=== PATIENT | male | born 1930 | race Caucasian/White ===

== ENCOUNTER → 2016-08-14 | Outpatient (CLI) | payer OTHER ==
[~2016-08-14] MED LIST: ACET-1311 PO; CALC0.2510 PO; CALC667C4 PO; CARV6.252 PO; CHOL1CAP95 PO; CHOL4POW3 PO; CLCC1250 PO; CMD3 PO; DIGO0.122 PO; DIGO30TA PO; EPGI40M SC; FURO40TA3 PO; LEVO1TAB34 PO; LEVO1TAB35 PO; LNX125 PO; LVQ500 PO; MESA1TAB4 PO; MOME100A INH; MRLP17 PO; NTRGSL/4 UT; NTRSLP4 SL; PHS667 PO; PRD/1 PO; PRED10TA PO; PXL20 PO; RCL25 PO; TCMD1 PO; TCMD2 PO; VITATAB22 PO; VTMD PO; VTMD1000 PO; WARF2TAB8 PO; XNX25 PO
[2016-08-14 18:00] LABS: BLOOD UREA NITROGEN 68 mg/dl (7-18); BUN/CREATININE RATIO 18.3 (10-20); CALCIUM 9.6 mg/dl (8.5-10.1); CARBON DIOXIDE 21 mmol/L (21-32); CHLORIDE 109 mmol/L (98-107); GLUCOSE 132 mg/dl (70-99); PHOSPHORUS 3.2 mg/dl (2.5-4.9); POTASSIUM 3.9 mmol/L (3.5-5.1); SODIUM 143 mmol/L (136-145)
== END | disposition home or self-care (01) ==
LOC: C.LAB1850 15:54
PROVIDERS: ATTEND Internal Medicine
DX: N18.9 Chronic kidney disease, unspecified (principal)

== ENCOUNTER → 2016-08-21 | Outpatient (CLI) | payer OTHER ==
[~2016-08-21] MED LIST changes: -MESA1TAB4 PO; +MESA800T6 PO
[2016-08-21 14:47] LABS: BLOOD UREA NITROGEN 58 mg/dl (7-18); BUN/CREATININE RATIO 16.2 (10-20); CALCIUM 9.9 mg/dl (8.5-10.1); CARBON DIOXIDE 21 mmol/L (21-32); CHLORIDE 108 mmol/L (98-107); GLUCOSE 117 mg/dl (70-99); POTASSIUM 3.8 mmol/L (3.5-5.1); SODIUM 141 mmol/L (136-145)
== END | disposition home or self-care (01) ==
LOC: C.LAB1850 12:49
PROVIDERS: ATTEND Internal Medicine
DX: N18.9 Chronic kidney disease, unspecified (principal); D64.9 Anemia, unspecified

== ENCOUNTER → 2016-08-31 | Outpatient (CLI) | payer OTHER ==
[~2016-08-31] MED LIST changes: -NTRGSL/4 UT
[2016-08-31 17:06] LABS: BLOOD UREA NITROGEN 64 mg/dl (7-18); BUN/CREATININE RATIO 18.9 (10-20); CALCIUM 9.8 mg/dl (8.5-10.1); CARBON DIOXIDE 19 mmol/L (21-32); CHLORIDE 110 mmol/L (98-107); GLUCOSE 162 mg/dl (70-99); POTASSIUM 3.8 mmol/L (3.5-5.1); SODIUM 140 mmol/L (136-145)
== END | disposition home or self-care (01) ==
LOC: C.LABBC 15:29
PROVIDERS: ATTEND Internal Medicine
DX: D64.9 Anemia, unspecified (principal); I48.91 Unspecified atrial fibrillation; I50.9 Heart failure, unspecified; N18.9 Chronic kidney disease, unspecified

== ENCOUNTER → 2016-09-13 | Outpatient (CLI) | payer OTHER ==
[2016-09-13 15:23] LABS: MANUAL MICROSCOPIC REQUIRED? YES; REVIEW REQ? NO; URINE APPEARANCE TURBID (CLEAR); URINE BILIRUBIN NEG (NEG); URINE COLOR DK YELLOW; URINE NITRITE NEG (NEG); URINE PH >= 9.0 (4.5-7.5); URINE SPECIFIC GRAVITY 1.016 (1.000-1.030); UROBILINOGEN NEG (NEG)
[2016-09-13 15:31] LABS: SULFASALICYLIC ACID POS (NEG)
[2016-09-13 15:48] LABS: URINE AMORPHOUS SEDIMENT PRESENT (NONE PRSENT)
[2016-09-13 15:49] LABS: URINE RBC 0-4 /hpf (0-4)
[2016-09-13 15:50] LABS: URINE BACTERIA 1+ (NEG)
== END | disposition home or self-care (01) ==
LOC: C.LAB1850 14:17
PROVIDERS: ATTEND Internal Medicine
DX: Z90.5 Acquired absence of kidney (principal)

== ENCOUNTER → 2016-11-26 | Outpatient (CLI) | payer OTHER ==
[~2016-11-26] MED LIST changes: +MESA1TAB4 PO; -MESA800T6 PO; +NTRGSL/4 UT; -PRED10TA PO
[2016-11-26 17:02] LABS: HEMATOCRIT 35.2 % (42-52)
[2016-11-26 17:09] LABS: BLOOD UREA NITROGEN 59 mg/dl (7-18); BUN/CREATININE RATIO 15.2 (10-20); CALCIUM 7.8 mg/dl (8.5-10.1); CARBON DIOXIDE 19 mmol/L (21-32); CHLORIDE 113 mmol/L (98-107); GLUCOSE 169 mg/dl (70-99); POTASSIUM 3.8 mmol/L (3.5-5.1); SODIUM 144 mmol/L (136-145)
[2016-11-26 17:10] LABS: PHOSPHORUS 3.4 mg/dl (2.5-4.9)
== END | disposition home or self-care (01) ==
LOC: C.LABBC 13:38
PROVIDERS: ATTEND Internal Medicine
DX: N18.9 Chronic kidney disease, unspecified (principal); D64.9 Anemia, unspecified

== ENCOUNTER → 2016-12-24 | Outpatient (CLI) | payer OTHER ==
[2016-12-24 17:07] LABS: INR 2.6 (0.9-1.1); PROTHROMBIN TIME (PATIENT) 28.6 SECONDS (9.0-12.0)
[2016-12-24 17:23] LABS: BLOOD UREA NITROGEN 68 mg/dl (7-18); BUN/CREATININE RATIO 17.8 (10-20); CALCIUM 11.1 mg/dl (8.5-10.1); CARBON DIOXIDE 21 mmol/L (21-32); CHLORIDE 113 mmol/L (98-107); GLUCOSE 150 mg/dl (70-99); PHOSPHORUS 3.4 mg/dl (2.5-4.9); POTASSIUM 4.1 mmol/L (3.5-5.1); SODIUM 143 mmol/L (136-145)
== END | disposition home or self-care (01) ==
LOC: C.LABBC 12:51
PROVIDERS: ATTEND Internal Medicine
DX: M35.3 Polymyalgia rheumatica (principal); M75.102 Unspecified rotator cuff tear or rupture of left shoulder, not specified as traumatic; H15.009 Unspecified scleritis, unspecified eye; I48.91 Unspecified atrial fibrillation; N18.9 Chronic kidney disease, unspecified; D64.9 Anemia, unspecified

== ENCOUNTER → 2017-01-21 | Outpatient (CLI) | payer OTHER ==
[2017-01-21 17:37] LABS: HEMATOCRIT 36.4 % (42-52)
[2017-01-21 17:45] LABS: INR 3.1 (0.9-1.1); PROTHROMBIN TIME (PATIENT) 34.8 SECONDS (9.0-12.0)
== END | disposition home or self-care (01) ==
LOC: C.LABBC 14:23
PROVIDERS: ATTEND Internal Medicine
DX: D64.9 Anemia, unspecified (principal); I48.91 Unspecified atrial fibrillation

== ENCOUNTER → 2017-03-11 | Outpatient (CLI) | payer OTHER ==
[~2017-03-11] MED LIST changes: -MESA1TAB4 PO; +MESA800T6 PO
[2017-03-11 17:19] LABS: PROTHROMBIN TIME (PATIENT) 58.4 SECONDS (9.0-12.0)
[2017-03-11 17:21] LABS: INR 5.1 (0.9-1.1)
== END | disposition home or self-care (01) ==
LOC: C.LABBC 12:20
PROVIDERS: ATTEND Internal Medicine Rheumatology
DX: I48.91 Unspecified atrial fibrillation (principal)

== ENCOUNTER 2017-03-31 03:21 | Inpatient (IN) | payer OTHER ==
[2017-03-31] VITALS (9 sets, daily range): BP systolic 108–117; BP diastolic 51–73; PULSE 68–98; TEMP 36.5–37; O2SAT 93–97; Ht 175.3 cm; Wt 71.0 kg
[~2017-03-31] VITALS: Ht 175.3 cm; Wt 71.0 kg
[~2017-03-31 03:21] MED LIST changes: -CALC0.2510 PO; -CALC667C4 PO; -CHOL1CAP95 PO; -CMD3 PO; -DIGO30TA PO; -LEVO1TAB34 PO; -LEVO1TAB35 PO; -NTRGSL/4 UT; -PRD/1 PO
[2017-03-31 03:56] LABS: HEMATOCRIT 41.4 % (42-52); MEAN CORPUSCULAR HEMOGLOBIN 27.8 pg (25-34); MEAN CORPUSCULAR HGB CONC 29.2 g/dl (32-36); MEAN PLATELET VOLUME 10.1 fL (7.4-10.4); PLATELET COUNT 127 K/uL (130-400); RED BLOOD COUNT 4.36 M/uL (4.7-6.1); WHITE BLOOD COUNT 13.92 K/uL (4.8-10.8)
[2017-03-31 04:03] LABS: ISTAT CREATININE 4.3 mg/dl (0.6-1.3); ISTAT HEMOGLOBIN 12.9 g/dl (14.0-18.0); ISTAT IONIZED CALCIUM 1.16 mmol/l (1.12-1.32)
--- NOTE | 2017-03-31 04:07 | EMERGENCY ROOM VISIT NOTE ---
History Report prepared by Ela: Nelli Barreto Under the Supervision of: Dr. Chela Morrow D.O. First contact with patient: 03:23 Stated Complaint: WEAKNESS, CONFUSION History of Present Illness The patient is an 86 year old male who presents to the Emergency Room with complaints of an episode of confusion starting this morning. The patient states that his is upset with him. He states that he half fell and had trouble getting back up. He complains of chills, abdominal pain, and not eating or drinking properly. He notes that the chills started within the past 24 hours and he can't get warm. The patient denies it being normal to fall. Per EMS, the patient is weak and confused. They note that he seems to go in and out of atrial fibrillation. They state he does not have a fever. Source of History: patient, EMS History Limited By: AMS Onset: this morning Position: other (global) Quality: other (global) Timing: other (episode) Associated Symptoms: + chills, + weakness, No fevers Note: The patient denies it being normal to fall. Review of Systems See HPI for pertinent positives & negatives. A total of 10 systems reviewed and were otherwise negative. Past Medical & Surgical Medical Problems: (1) Acute renal failure (2) Acute renal failure superimposed on stage 4 chronic kidney disease (3) Acute respiratory failure (4) Amputated right leg (5) Anemia (6) Aneurysm (7) Atrial fibrillation (8) Bladder cancer (9) Chronic kidney disease, stage IV (severe) (10) Diastolic CHF (11) DVT (deep venous thrombosis) (12) Hernia (13) History of chemotherapy (14) History of nephrectomy, unilateral (15) HTN (hypertension) (16) Hypertension (17) Kidney disease (18) PE (pulmonary embolism) (19) Phlebitis (20) Prostate cancer (21) Pulmonary embolus (22) Renal cancer (23) Right upper lobe pneumonia (24) Secondary hyperparathyroidism of renal origin Surgical Problems: (1) H/O total cystectomy (2) History of nephrectomy (3) History of prostate surgery (4) History of prostatectomy Family History Cancer Heart disease Hypertension Social History Smoking Status: Former Smoker Alcohol Use: occasionally Drug Use: none Marital Status: Housing Status: lives with significant other Occupation Status: retired Current/Historical Medications Scheduled Calcitriol (Calcitriol), 0.25 MCG PO QAM Calcitriol (Rocaltrol Cap), 0.25 MCG PO DAILY Calcium Acetate (Phoslo 667 Mg), 1,334 MG PO TIDM Calcium Acetate (Phoslo 667 Mg), 2 CAPSULES PO WM Calcium Carbonate (Oyster Shell Calcium), 1,250 MG PO BID Carvedilol (Coreg), 12.5 MG PO BID Cholecalciferol (Vitamin D3), 50,000 UNITS PO WK Cholestyramine (Cholestyramine), 4 GM PO BID Digoxin (Digoxin), 0.0625 MG PO DAILY@16 Digoxin (Lanoxin), 0.125 MG PO DAILY Digoxin (Digitek), 0.125 MG PO DAILY Furosemide (Lasix), 40 MG PO DAILY Mesalamine (Asacol Hd), 800 MG PO BID Mometasone Furoate-Formoterol (Dulera 100/5 Mcg), 2 PUFFS INH BID Paroxetine (Paroxetine HCl), 30 MG PO DAILY Polyethylene (Miralax), 17 GM PO BID Prednisone (Prednisone), 4 TAB PO DAILY Vitamins W/ Lipotropics (Balance B-50), 1 TAB PO BID Warfarin Sod (Jantoven), 2 MG PO DAILY Warfarin Sod (Coumadin), 1 MG PO QDB Warfarin Sod (Coumadin), 2 MG PO HS Warfarin Sod (Coumadin), 3 MG PO DAILY Scheduled PRN Acetaminophen (Tylenol), 650 MG PO Q4H PRN for Pain Alprazolam (Alprazolam), 0.125-0.25 TAB PO BID PRN for Anxiety Nitroglycerin (Nitrostat), 0.4 MG SL UD PRN for Chest Pain Miscellaneous Medications Epoetin Kip (Procrit), 40,000 UNIT SC Allergies Coded Allergies: Sulfa Antibiotics (Verified Allergy, Severe, RASH, COULDN'T BREATHE, ) Physical Exam Vital Signs Date Time Temp Pulse Resp B/P (MAP) Pulse Ox O2 Delivery O2 Flow Rate FiO2 03/31/17 05:26 85 92 03/31/17 05:11 101 28 90 03/31/17 04:56 99 95 03/31/17 04:41 88 90 03/31/17 04:26 89 30 93 03/31/17 04:11 114 31 86 03/31/17 04:10 95 Nasal Cannula 2.0 03/31/17 04:06 93 89 03/31/17 04:01 98 90 03/31/17 03:56 102 33 88 03/31/17 03:51 102 92 03/31/17 03:50 94 03/31/17 03:46 88 30 88 03/31/17 03:41 97 31 91 03/31/17 03:37 93 Room Air 03/31/17 03:36 105 34 98 Room Air 03/31/17 03:31 112/63 03/31/17 03:31 37.7 95 29 112/63 93 Room Air Physical Exam General: Seems slightly lethargic. Strong smell of urine. HEENT: Head - normocephalic and atraumatic Pupils are equal, round, and reactive to light. Extraocular eye muscles are intact, and sclera are anicteric. Nose - moist nasal mucosa without discharge. Mouth - extremely dry buccal mucosa. Oropharynx is nonerythematous and there is no tonsillar exudate or edema noted. Neck: Supple; no JVD, or cervical lymphadenopathy Heart: Tachycardic rate and irregularly irregular rhythm. There is a normal S1 and S2 with no murmurs, clicks, or gallops appreciated. Lungs: Clear to auscultation bilaterally with no wheezes, rales, or rhonchi. Abdomen: Soft, completely nontender, nondistended, with good bowel sounds. There are no palpable pulsatile masses or hepatosplenomegaly. There is no guarding, rigidity, or rebound noted. Extremities: No evidence of cyanosis, clubbing, or edema. There are easily palpable peripheral pulses. Skin: hot and dry with good turgor and no rashes. Medical Decision & Procedures ER Provider Diagnostic Interpretation: CHEST X-RAY: Findings: The results were interpreted by me. Moderate motion artifact. Significant cardiomegaly and pulmonary vascular congestion. Laboratory Results 03/31/17 03:04 Red Blood Count 4.36, Mean Corpuscular Volume 95.0, Mean Corpuscular Hemoglobin 27.8, Mean Corpuscular Hemoglobin Concent 29.2, Mean Platelet Volume 10.1, Neutrophils (%) (Auto) 86.9, Lymphocytes (%) (Auto) 5.6, Monocytes (%) (Auto) 6.0, Eosinophils (%) (Auto) 0.3, Basophils (%) (Auto) 0.1, Neutrophils # (Auto) 12.09, Lymphocytes # (Auto) 0.78, Monocytes # (Auto) 0.84, Eosinophils # (Auto) 0.04, Basophils # (Auto) 0.01 03/31/17 03:04 Test 03/31/17 03:04 03/31/17 03:45 03/31/17 03:50 03/31/17 04:16 White Blood Count 13.92 K/uL (4.8-10.8) Red Blood Count 4.36 M/uL (4.7-6.1) Hemoglobin 12.1 g/dL (14.0-18.0) Hematocrit 41.4 % (42-52) Mean Corpuscular Volume 95.0 fL (80-100) Mean Corpuscular Hemoglobin 27.8 pg (25-34) Mean Corpuscular Hemoglobin Concent 29.2 g/dl (32-36) Platelet Count 127 K/uL (130-400) Mean Platelet Volume 10.1 fL (7.4-10.4) Neutrophils (%) (Auto) 86.9 % Lymphocytes (%) (Auto) 5.6 % Monocytes (%) (Auto) 6.0 % Eosinophils (%) (Auto) 0.3 % Basophils (%) (Auto) 0.1 % Neutrophils # (Auto) 12.09 K/uL (1.4-6.5) Lymphocytes # (Auto) 0.78 K/uL (1.2-3.4) Monocytes # (Auto) 0.84 K/uL (0.11-0.59) Eosinophils # (Auto) 0.04 K/uL (0-0.5) Basophils # (Auto) 0.01 K/uL (0-0.2) RDW Standard Deviation 63.9 fL (36.4-46.3) RDW Coefficient of Variation 18.4 % (11.5-14.5) Immature Granulocyte % (Auto) 1.1 % Immature Granulocyte # (Auto) 0.16 K/uL (0.00-0.02) Tear Drop Cells 1+ Ovalocytes 1+ Echinocytes 1+ Prothrombin Time 57.5 SECONDS (9.0-12.0) Prothromb Time International Ratio 5.0 (0.9-1.1) Activated Partial Thromboplast Time 46.0 SECONDS (21.0-31.0) Partial Thromboplastin Ratio 1.8 Est Creatinine Clear Calc Drug Dose 12.4 ml/min Estimated GFR () 13.8 Estimated GFR (Non- 11.9 BUN/Creatinine Ratio 18.8 (10-20) Calcium Level 8.0 mg/dl (8.5-10.1) Total Bilirubin 0.6 mg/dl (0.2-1) Aspartate Amino Transf (AST/SGOT) 10 U/L (15-37) Alanine Aminotransferase (ALT/SGPT) 17 U/L (12-78) Alkaline Phosphatase 55 U/L (45-117) Total Creatine Kinase 59 U/L (39-308) Creatine Kinase MB 2.5 ng/ml (0.5-3.6) Troponin I 0.039 ng/ml (0-0.045) Pro-B-Type Natriuretic Peptide 9756 pg/ml (0-1800) Total Protein 7.3 gm/dl (6.4-8.2) Albumin 3.2 gm/dl (3.4-5.0) Globulin 4.1 gm/dl (2.5-4.0) Albumin/Globulin Ratio 0.8 (0.9-2) Bedside Hemoglobin 12.9 g/dl (14.0-18.0) Bedside Hematocrit 38 % (42-52) Bedside Sodium 139 mEq/L (135-144) Bedside Potassium 4.4 mEq/L (3.3-5.0) Bedside Chloride 113 mEq/L (101-112) Bedside Total CO2 16 mEq/l (24-31) Anion Gap 16.0 mmol/L (16-25) Bedside Blood Urea Nitrogen 83 mg/dl (7-18) Bedside Creatinine 4.3 mg/dl (0.6-1.3) Bedside Glucose (other) 122 mg/dl (70-99) Bedside Ionized Calcium (Donna) 1.16 mmol/l (1.12-1.32) Bedside Lactic Acid Venous 1.09 mmol/L (0.90-1.70) Creatine Kinase MB Ratio (0-3.0) Test 03/31/17 04:20 Urine Color DK YELLOW Urine Appearance CLOUDY (CLEAR) Urine pH >= 9.0 (4.5-7.5) Urine Specific [place] 1.014 (1.000-1.030) Urine Protein 1+ (NEG) Urine Glucose (UA) NEG (NEG) Urine Ketones NEG (NEG) Urine Occult Blood 1+ (NEG) Urine Nitrite NEG (NEG) Urine Bilirubin NEG (NEG) Urine Urobilinogen NEG (NEG) Urine Leukocyte Esterase MODERATE (NEG) Urine WBC (Auto) 10-30 /hpf (0-5) Urine RBC (Auto) 0-4 /hpf (0-4) Urine Hyaline Casts (Auto) 1-5 /lpf (0-5) Urine Epithelial Cells (Auto) 5-10 /lpf (0-5) Urine Bacteria (Auto) 4+ (NEG) Urine Crystals TRIPLE PHOSPHATE Urine Yeast (Auto) (NONE PRSENT) Laboratory results per my review. Medications Administered Medications (Trade) Dose Ordered Sig/Olya Route Start Time Stop Time Status Last Admin Dose Admin Sodium Chloride 500 ml @ 999 mls/hr Q31M STAT IV 03/31/17 04:13 03/31/17 04:43 DC 03/31/17 04:34 999 MLS/HR Sodium Chloride 1,000 ml @ 250 mls/hr Q4H STAT IV 03/31/17 04:13 03/31/17 06:30 DC 03/31/17 04:34 250 MLS/HR Daptomycin 500 mg/ Sodium Chloride 60 ml @ 100 mls/hr NOW STAT IV 03/31/17 05:03 03/31/17 05:38 DC 03/31/17 05:29 100 MLS/HR Piperacillin Sod/ Tazobactam Sod (Zosyn Iv) 4.5 gm NOW STAT IV 03/31/17 05:03 03/31/17 05:05 DC 03/31/17 05:20 4.5 GM Procedure 0413: Ordered NSS 1000 ml @ 250 mls/hr IV, NSS 500 ml @ 999 mls/hr IV. 0503: Ordered Zosyn Iv 4.5 gm IV, Daptomycin 500 mg/ Sodium Chloride 60 ml @ 100 mls/hr IV. ECG Indication: weakness Rate (beats per minute): 103 Rhythm: atrial fibrillation Findings: RBBB, other (RVR) Comparison ECG Date: 04/02/2016 Change: no significant change ED Course 0327: Past medical records reviewed. The patient was evaluated in room A11B. A complete history and physical exam was performed. A septic protocol was performed. A twelve-lead EKG was obtained. A chest x-ray was performed. A urine specimen was obtained from his catheter. 0413: Ordered NSS 1000 ml @ 250 mls/hr IV, NSS 500 ml @ 999 mls/hr IV. 0503: Ordered Zosyn Iv 4.5 gm IV, Daptomycin 500 mg/ Sodium Chloride 60 ml @ 100 mls/hr IV. 0505: I reevaluated the patient and he was resting comfortably. I discussed the results with him and his . 0532: Discussed the patient's case with Dr. Bhat. The patient will be evaluated for further management. Medical Decision The patient is an 86 year old male who presents to the Emergency Room with complaints of an episode of confusion and chills starting this morning. Differential diagnoses include sepsis, UTI, hypoglycemia, hyponatremia. LABS: Lactate 1.09 Creatine 4.3 BUN 83 Glucose 122 Hemiglobin 12.9 White blood cell count 13.9 INR 5.0 Platelet Count 127 LFTs normal Urine dark yellow and cloudy 1+ blood, moderate leukocyte esterase 10-30 white blood cells 4+ bacteria Lactic acid-1.09 the patient presents to the emergency department with increasing confusion and chills. There was concern for sepsis as the patient was tachycardic, tachypneic, febrile , and has an elevated white blood cell count. The patient's BUN/creatinine has increased. In reviewing previous urine cultures, the patient has had enterococcus faecalis which has been susceptible to daptomycin. The patient was started on both daptomycin and Zosyn. He remained hemodynamic stable. I discussed the case with the [facility] Hospitalist and they will evaluate for further management. The patient did have an episode of hypoxia while here in the emergency department. He is placed on supplemental O2. There was evidence of pulmonary vascular congestion on chest x-ray. Medication Reconcilliation Current Medication List: was personally reviewed by mo Blood Pressure Screening Patient's blood pressure: Normal blood pressure Blood pressure disposition: Did not require urgent referral Consults Time Called: 0504 Consulting Physician: Dr. Bhat Returned Call: 0532 Discussed the patient's case with Dr. Bhat. The patient will be evaluated for further management. Impression Primary Impression: Sepsis Additional Impressions: UTI (urinary tract infection) Supratherapeutic INR Hypoxia Critical Care I have personally spent greater than 30 minutes of critical care time in the direct management of this patient. This includes bedside care, interpretation of diagnostic studies, and testing, discussion with consultants, patient, and family members, and other required patient management activities. This 30 minutes is in excess of all separately billable procedures. Scribe Attestation The scribe's documentation has been prepared under my direction and personally reviewed by me in its entirety. I confirm that the note above accurately reflects all work, treatment, procedures, and medical decision making performed by me. Departure Information Dispostion Being Evaluated By Hospitalist Nickolas Chapin M.D. (PCP) Problem Qualifiers Primary Impression: Sepsis Sepsis type: sepsis due to unspecified organism Qualified Codes: A41.9 - Sepsis, unspecified organism Additional Impressions: UTI (urinary tract infection) Urinary tract infection type: catheter-associated UTI Indwelling urinary catheter type: nephrostomy catheter Encounter type: initial encounter Qualified Codes: T83.512A - Infection and inflammatory reaction due to nephrostomy catheter, initial encounter; N39.0 - Urinary tract infection, site not specified
[2017-03-31 04:12] LABS: PARTIAL THROMBOPLASTIN RATIO 1.8; PROTHROMBIN TIME (PATIENT) 57.5 SECONDS (9.0-12.0)
[2017-03-31] MEDS ORDERED: SODIUM CHLORIDE 0.9% 1000ML 1,000 ML IV STA (04:13)
[2017-03-31] MEDS ORDERED: SODIUM CHLORIDE 0.9% 500ML 500 ML IV STA (04:13)
[2017-03-31 04:15] LABS: BUN/CREATININE RATIO 18.8 (10-20); CREATININE 4.2 mg/dl (0.60-1.40); POTASSIUM 4.5 mmol/L (3.5-5.1)
[2017-03-31 04:17] LABS: ALB/GLOB RATIO 0.8 (0.9-2)
[2017-03-31 04:18] LABS: BASO % 0.1 %; BASO ABS # 0.01 K/uL (0-0.2); COMPLETE YES; ECHINOCYTES 1+; EOS % 0.3 %; IG% 1.1 %; LYMPH % 5.6 %; LYMPH ABS # 0.78 K/uL (1.2-3.4); NEUT % 86.9 %; OVALOCYTES 1+; TEAR DROP CELLS 1+
[2017-03-31 04:42] LABS: URINE APPEARANCE CLOUDY (CLEAR); URINE BILIRUBIN NEG (NEG); URINE COLOR DK YELLOW; URINE NITRITE NEG (NEG); URINE PH >= 9.0 (4.5-7.5); URINE SPECIFIC GRAVITY 1.014 (1.000-1.030); UROBILINOGEN NEG (NEG); ZZURINE CULT IF INDIC CATH YES
[2017-03-31 05:00] LABS: MANUAL MICROSCOPIC REQUIRED? NO; REVIEW REQ? YES; SULFASALICYLIC ACID POS (NEG)
[2017-03-31] MEDS ORDERED: PIPERACILLIN/TAZOBACTAM 4.5 GM/100ML D5W IV STA (05:03)
[2017-03-31] MEDS ORDERED: DAPTOmycin IV 500 MG in SODIUM CHLORIDE 0.9% 50ML 50 ML IV STA (05:03)
[2017-03-31] MEDS ORDERED: CMD3 PO (05:28)
[2017-03-31] MEDS ORDERED: DIGO30TA PO (05:29)
[2017-03-31] MEDS ORDERED: ALUMINUM/MAGNESIUM/SIMETH (MAALOX MAX) 30 ML UDC PO PRN (05:30)
[2017-03-31] MEDS ORDERED: MAGNESIUM HYDROXIDE SUSP 30 ML UDC PO PRN (05:30)
[2017-03-31] MEDS ORDERED: NITROGLYCERIN 0.4 MG SL PER TAB CHARGE SL PRN (05:30)
[2017-03-31] MEDS ORDERED: ACETAMINOPHEN 325 MG TAB PO PRN (05:30)
[2017-03-31] MEDS ORDERED: ALPRAZOLAM 0.5 MG TAB PO PRN (05:30)
[2017-03-31] MEDS ORDERED: MoRPHine SULFATE 2 MG/ML CARP IV PRN (05:30)
[2017-03-31] MEDS ORDERED: ONDANSETRON INJ 2 MG/ML 2 ML VIAL IV PRN (05:30)
[2017-03-31] MEDS ORDERED: CHOL1CAP95 PO (05:31)
[2017-03-31] MEDS ORDERED: CALC0.2510 PO (05:33)
[2017-03-31] MEDS ORDERED: CALC667C4 PO (05:35)
[2017-03-31] MEDS ORDERED: PRD/1 PO (05:40)
[2017-03-31 05:51] LABS: CKMB/CK RATIO 4.2 (0-3.0)
--- NOTE | 2017-03-31 06:23 | History and Physical ---
History & Physical Date & Time of Service: Mar 31, 2017 at 05:53 Chief Complaint: Weakness, Confusion Primary Care Physician: Nickolas Garza M.D. History of Present Illness Source: patient, hospital records 86 y/o M with a complex medical history including CKD IV, CHF, AF, bladder CA post cystectomy - urostomy and recurrent UTIs. Presents with progressive weakness, fevers and intermittent confusion. He has a chronic cough, denies CP , N/V/D or MEIER. On arrival to the ER a fever was confirmed. His UA is + and his urine appears grossly purulent. Initial labs are notable for leukocytosis. 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 Faecium UTI Surgical Problems: (1) H/O total cystectomy Status: Chronic (2) History of nephrectomy Status: Chronic (3) History of prostate surgery Status: Resolved (4) History of prostatectomy Status: Chronic Family History Cancer Heart disease Hypertension Social History Retired school district superintendant Smoking Status: Former Smoker Drug Use: none Marital Status: Housing status: lives with family Occupational Status: retired Immunizations History of Tetanus Vaccine?: PT UNABLE TO REMEMBER History of Pneumococcal: PT UNAWARE. History of Hepatitis B Vaccine: No Multi-Drug Resistant Organisms History of MDRO: No Allergies Coded Allergies: Sulfa Antibiotics (Verified Allergy, Severe, RASH, COULDN'T BREATHE, ) Home Medications Scheduled Calcitriol (Calcitriol), 0.25 MCG PO QAM Calcitriol (Rocaltrol Cap), 0.25 MCG PO DAILY Calcium Acetate (Phoslo 667 Mg), 1,334 MG PO TIDM Calcium Acetate (Phoslo 667 Mg), 2 CAPSULES PO WM Calcium Carbonate (Oyster Shell Calcium), 1,250 MG PO BID Carvedilol (Coreg), 12.5 MG PO BID Cholecalciferol (Vitamin D3), 50,000 UNITS PO WK Cholestyramine (Cholestyramine), 4 GM PO BID Digoxin (Digoxin), 0.0625 MG PO DAILY@16 Digoxin (Lanoxin), 0.125 MG PO DAILY Digoxin (Digitek), 0.125 MG PO DAILY Furosemide (Lasix), 40 MG PO DAILY Mesalamine (Asacol Hd), 800 MG PO BID Mometasone Furoate-Formoterol (Dulera 100/5 Mcg), 2 PUFFS INH BID Paroxetine (Paroxetine HCl), 30 MG PO DAILY Polyethylene (Miralax), 17 GM PO BID Prednisone (Prednisone), 4 TAB PO DAILY Vitamins W/ Lipotropics (Balance B-50), 1 TAB PO BID Warfarin Sod (Jantoven), 2 MG PO DAILY Warfarin Sod (Coumadin), 1 MG PO QDB Warfarin Sod (Coumadin), 2 MG PO HS Warfarin Sod (Coumadin), 3 MG PO DAILY Scheduled PRN Acetaminophen (Tylenol), 650 MG PO Q4H PRN for Pain Alprazolam (Alprazolam), 0.125-0.25 TAB PO BID PRN for Anxiety Nitroglycerin (Nitrostat), 0.4 MG SL UD PRN for Chest Pain Miscellaneous Medications Epoetin Kip (Procrit), 40,000 UNIT SC Review of Systems Constitutional: + fever, + weakness, + fatigue, + problem reported (Confusion) , No chills, No sweats Eyes: + eye pain (Has had b/l euye pain and redness for a few weeks - follows with ophtho ), No worsening of vision ENT: No hearing loss, No unusual epistaxis, No nasal symptoms Respiratory: + cough (Chronic productive cough), + sputum, No wheezing Cardiovascular: No chest pain, No orthopnea, No PND Abdomen: No pain, No nausea, No vomiting Musculoskeletal: No joint pain Genitourinary - Male: + problem reported (Purulent urine), No hematuria Neurologic: + problem reported (Mild confusion), No memory loss, No paralysis Psychiatric: No depression symptoms Endocrine: + fatigue Hematologic / Lymphatic: No abnormal bleeding/bruising Integumentary: No rash Allergic / Immunologic: No environmental allergies Physical Exam Vital Signs Date Time Temp Pulse Resp B/P (MAP) Pulse Ox O2 Delivery O2 Flow Rate FiO2 03/31/17 04:10 95 Nasal Cannula 2.0 03/31/17 04:06 93 89 03/31/17 04:01 98 90 03/31/17 03:56 102 33 88 03/31/17 03:51 102 92 03/31/17 03:50 94 03/31/17 03:46 88 30 88 03/31/17 03:41 97 31 91 03/31/17 03:37 93 Room Air 03/31/17 03:36 105 34 98 Room Air 03/31/17 03:31 112/63 03/31/17 03:31 37.7 95 29 112/63 93 Room Air General Appearance: + pertinent finding (Takative elderly male - appears lethargic and fatigued without overt distress.) Head: normocephalic, atraumatic Eyes: normal inspection ENT: normal ENT inspection, pharynx normal Neck: supple, no JVD Respiratory/Chest: chest non-tender, + decreased breath sounds, + pertinent finding (Poor effort - poor air movement) Cardiovascular: + systolic murmur, + irregularly irregular Abdomen/GI: normal bowel sounds, soft, + pertinent finding (Urostomy present - no surrounding inflamation noted ) Back: normal inspection, no CVA tenderness Extremities/Musculoskelatal: + pertinent finding (R AKA - trace edema on L) Neurologic/Psych: db2 dba II-XII nml as tested, no motor/sensory deficits, alert, + pertinent finding (Shows occasional mild confusion, however, mentation is largely intact) Skin: normal color, warm/dry Diagnostics Laboratory Results Results Past 24 Hours Test 03/31/17 03:04 03/31/17 03:45 03/31/17 03:50 03/31/17 04:16 Range/Units White Blood Count 13.92 4.8-10.8 K/uL Red Blood Count 4.36 4.7-6.1 M/uL Hemoglobin 12.1 14.0-18.0 g/dL Hematocrit 41.4 42-52 % Mean Corpuscular Volume 95.0 80-100 fL Mean Corpuscular Hemoglobin 27.8 25-34 pg Mean Corpuscular Hemoglobin Concent 29.2 32-36 g/dl Platelet Count 127 130-400 K/uL Mean Platelet Volume 10.1 7.4-10.4 fL Neutrophils (%) (Auto) 86.9 % Lymphocytes (%) (Auto) 5.6 % Monocytes (%) (Auto) 6.0 % Eosinophils (%) (Auto) 0.3 % Basophils (%) (Auto) 0.1 % Neutrophils # (Auto) 12.09 1.4-6.5 K/uL Lymphocytes # (Auto) 0.78 1.2-3.4 K/uL Monocytes # (Auto) 0.84 0.11-0.59 K/uL Eosinophils # (Auto) 0.04 0-0.5 K/uL Basophils # (Auto) 0.01 0-0.2 K/uL RDW Standard Deviation 63.9 36.4-46.3 fL RDW Coefficient of Variation 18.4 11.5-14.5 % Immature Granulocyte % (Auto) 1.1 % Immature Granulocyte # (Auto) 0.16 0.00-0.02 K/uL Tear Drop Cells 1+ Ovalocytes 1+ Echinocytes 1+ Prothrombin Time 57.5 9.0-12.0 SECONDS Prothromb Time International Ratio 5.0 0.9-1.1 Activated Partial Thromboplast Time 46.0 21.0-31.0 SECONDS Partial Thromboplastin Ratio 1.8 Sodium Level 139 136-145 mmol/L Potassium Level 4.5 3.5-5.1 mmol/L Chloride Level 114 98-107 mmol/L Carbon Dioxide Level 16 21-32 mmol/L Anion Gap 9.0 16.0 16-25 mmol/L Blood Urea Nitrogen 79 7-18 mg/dl Creatinine 4.20 0.60-1.40 mg/dl Est Creatinine Clear Calc Drug Dose 12.4 ml/min Estimated GFR () 13.8 Estimated GFR (Non- 11.9 BUN/Creatinine Ratio 18.8 10-20 Random Glucose 116 70-99 mg/dl Calcium Level 8.0 8.5-10.1 mg/dl Total Bilirubin 0.6 0.2-1 mg/dl Aspartate Amino Transf (AST/SGOT) 10 15-37 U/L Alanine Aminotransferase (ALT/SGPT) 17 12-78 U/L Alkaline Phosphatase 55 45-117 U/L Total Creatine Kinase 59 39-308 U/L Creatine Kinase MB 2.5 0.5-3.6 ng/ml Creatine Kinase MB Ratio 4.2 0-3.0 Troponin I 0.039 0-0.045 ng/ml Pro-B-Type Natriuretic Peptide 9756 0-1800 pg/ml Total Protein 7.3 6.4-8.2 gm/dl Albumin 3.2 3.4-5.0 gm/dl Globulin 4.1 2.5-4.0 gm/dl Albumin/Globulin Ratio 0.8 0.9-2 Bedside Hemoglobin 12.9 14.0-18.0 g/dl Bedside Hematocrit 38 42-52 % Bedside Sodium 139 135-144 mEq/L Bedside Potassium 4.4 3.3-5.0 mEq/L Bedside Chloride 113 101-112 mEq/L Bedside Total CO2 16 24-31 mEq/l Bedside Blood Urea Nitrogen 83 7-18 mg/dl Bedside Creatinine 4.3 0.6-1.3 mg/dl Bedside Glucose (other) 122 70-99 mg/dl Bedside Ionized Calcium (Donna) 1.16 1.12-1.32 mmol/l Bedside Lactic Acid Venous 1.09 0.90-1.70 mmol/L Test 03/31/17 04:20 Range/Units Urine Color DK YELLOW Urine Appearance CLOUDY CLEAR Urine pH >= 9.0 4.5-7.5 Urine Specific [place] 1.014 1.000-1.030 Urine Protein 1+ NEG Urine Glucose (UA) NEG NEG Urine Ketones NEG NEG Urine Occult Blood 1+ NEG Urine Nitrite NEG NEG Urine Bilirubin NEG NEG Urine Urobilinogen NEG NEG Urine Leukocyte Esterase MODERATE NEG Urine WBC (Auto) 10-30 0-5 /hpf Urine RBC (Auto) 0-4 0-4 /hpf Urine Hyaline Casts (Auto) 1-5 0-5 /lpf Urine Epithelial Cells (Auto) 5-10 0-5 /lpf Urine Bacteria (Auto) 4+ NEG Urine Crystals TRIPLE PHOSPHATE NONE PRSENT Urine Yeast (Auto) NONE PRSENT Microbiology Results 03/31/17 Blood Culture, Received Pending 03/31/17 Blood Culture, Received Pending 03/31/17 Urine Culture, Received Pending Diagnostic Radiology CXR: Vascular congestion - no clear infiltrates EKG AF - RBBB - 100BPM - no significant change Impression Assessment and Plan 86 y/o M with a complex medical history including CKD IV, CHF, AF, bladder CA post cystectomy - urostomy and recurrent UTIs. Presents with progressive weakness, fevers and intermittent confusion. He has a chronic cough, denies CP , N/V/D or MEIER. On arrival to the ER a fever was confirmed. His UA is + and his urine appears grossly purulent. Initial labs are notable for leukocytosis. 1) Sepsis - UTI - based on previous microbiology, pt placed on Dapto - Zosyn added due to sepsis pending culture results. He has not exhibited hypotension, however, his volume status and pressure will bear monitoring due to underlying CHF. He has been assigned to telemetry. 2) CHF - Clinically he is mildly fluid overloaded - due to infection and potential for hypotension - no additional diuretics provided - will cont scheduled Lasix dose, Bblocker. 3) CKD - creatinine appears stable based on available labs - trend BMP daily 4) AF - rate is slightly high which may be due to infection and fever - monitor on telemetry - cont Coreg and Dig - INR is supratherapeutic so that Coumadin can be held for 1-2 days Full code - Coumadin prophylaxis Total time for this admit including review of labs, meds, imaging, EKG, records - discussion with pt and ER attending - 45 min Level of Care Telemetry Resuscitation Status FULL RESUSCITATION VTE Prophylaxis VTE Risk Assessment Done? Y/N: Yes Risk Level: Moderate Given or contraindicated: Warfarin (Coumadin)
[2017-03-31] MEDS ORDERED: PIPERACILL/TAZOBAC CONSULT ACTIVE PRN (06:30)
[2017-03-31] MEDS ORDERED: DAPTOMYCIN CONSULT ACTIVE PRN ×2 (06:30)
[2017-03-31] MEDS: CALCITRIOL 0.25 MCG CAP PO SCH (07:56)
[2017-03-31] MEDS: PAROXETINE 30 MG TAB PO SCH (07:56)
[2017-03-31] MEDS: CALCIUM ACETATE 667MG GELCAP PO SCH ×3 (07:57→17:09)
[2017-03-31] MEDS: FUROSEMIDE 40 MG TAB PO SCH ×2 (07:57→17:09)
[2017-03-31] MEDS: POLYETHYLENE (MIRALAX) 17 GM PACK PO SCH ×2 (08:01→20:53)
--- NOTE | 2017-03-31 08:09 | DIAGNOSTIC IMAGING REPORT ---
SINGLE VIEW CHEST CLINICAL HISTORY: Sepsis. FINDINGS: An AP, portable, upright chest radiograph is compared to study dated 04/18/2016 and correlated with chest CT dated 12/11/2015. The examination is severely degraded by portable technique, motion artifact, and patient rotation. The heart is enlarged and there is atherosclerotic calcification of the thoracic aorta. There is no clear evidence of pulmonary basilar congestion. Advanced emphysema and changes of chronic interstitial lung disease are similar to previous. There is diffuse interstitial thickening and subpleural reticulation. Airspace opacities are suggested at the left lung base. No large pleural effusion or pneumothorax is seen. The skeletal structures are osteopenic. The bony thorax is grossly intact. IMPRESSION: 1. Cardiomegaly without clear radiographic evidence of congestive failure. 2. Changes of emphysema and chronic interstitial lung disease are similar to previous. 3. Suspect more focal airspace consolidation at the left lung base which was not seen on 04/18/2016. Correlated clinically for evidence of superimposed pneumonia/aspiration pneumonitis. Radiographic follow-up to resolution is recommended. Electronically signed by: Jason Reina M.D. 03/31/2017 8:08 AM Dictated Date/Time: 03/31/2017 8:06 AM
[2017-03-31] MEDS ORDERED: DIGOXIN 0.125 MG TAB PO SCH (09:00)
[2017-03-31] MEDS ORDERED: CARVEDILOL 12.5 MG TAB PO SCH (09:00)
[2017-03-31] MEDS: CHOLESTYRAMINE LIGHT 4 GM PKT PO SCH ×2 (10:00→20:53)
[2017-03-31] MEDS ORDERED: NURSING VERBAL MED ORDER ONE (11:30)
[2017-03-31] MEDS: PIPERACILL/TAZOBAC IV 3.375 GM in DEXTROSE 5% 100ML 100 ML IV SCH (13:56)
[2017-03-31] MEDS: DIGOXIN 0.125 MG TAB PO SCH (17:10)
[2017-04-01] VITALS (9 sets, daily range): BP systolic 113–129; BP diastolic 58–80; PULSE 62–83; TEMP 36.1–37; O2SAT 93–97
[2017-04-01] MEDS: PIPERACILL/TAZOBAC IV 3.375 GM in DEXTROSE 5% 100ML 100 ML IV SCH ×2 (01:55→14:19)
[2017-04-01 05:51] LABS: HEMATOCRIT 35.2 % (42-52); MEAN CELL VOLUME 94.4 fL (80-100); MEAN CORPUSCULAR HEMOGLOBIN 27.9 pg (25-34); MEAN CORPUSCULAR HGB CONC 29.5 g/dl (32-36); MEAN PLATELET VOLUME 9.7 fL (7.4-10.4); PLATELET COUNT 114 K/uL (130-400); RED BLOOD COUNT 3.73 M/uL (4.7-6.1)
[2017-04-01 06:17] LABS: PROTHROMBIN TIME (PATIENT) 58.7 SECONDS (9.0-12.0)
[2017-04-01 06:18] LABS: BUN/CREATININE RATIO 16.5 (10-20); CALCIUM 7.7 mg/dl (8.5-10.1); CREATININE 4.4 mg/dl (0.60-1.40); POTASSIUM 4.2 mmol/L (3.5-5.1)
[2017-04-01 06:30] LABS: BASO % 0.1 %; BASO ABS # 0.01 K/uL (0-0.2); COMPLETE YES; ECHINOCYTES 2+; EOS % 0.7 %; IG% 0.9 %; LYMPH % 6.9 %; LYMPH ABS # 0.85 K/uL (1.2-3.4); MONO % 9.5 %; NEUT % 81.9 %; OVALOCYTES 1+; TEAR DROP CELLS 1+
[2017-04-01 07:09] LABS: INR 5.1 (0.9-1.1)
[2017-04-01] MEDS: POLYETHYLENE (MIRALAX) 17 GM PACK PO SCH ×2 (08:16→20:38)
[2017-04-01] MEDS: MESALAMINE DR TABLET 800 MG TABDR PO SCH ×4 (08:21→20:40)
[2017-04-01] MEDS: MOMETASONE/FORMOTEROL (DULERA) INH INH SCH ×2 (08:21→20:38)
[2017-04-01] MEDS: PAROXETINE 30 MG TAB PO SCH (08:22)
[2017-04-01] MEDS: CALCITRIOL 0.25 MCG CAP PO SCH (08:23)
[2017-04-01] MEDS: FUROSEMIDE 40 MG TAB PO SCH (08:23)
[2017-04-01] MEDS: CALCIUM ACETATE 667MG GELCAP PO SCH ×3 (08:24→16:31)
--- NOTE | 2017-04-01 09:08 | Hospitalist Progress Note ---
Hospitalist Progress Note Date of Service Apr 01, 2017. (Aury Carvalho PA-C) Subjective Pt evaluation today including: conversation w/ patient, physical exam, chart review, lab review, review of studies Pain: None PO Intake: Good Voiding: lopez catheter in place (foul smelling urine) The patient was seen and examined this morning. Pt reports doing well. He is oriented and feels like he should have recognized a UTI because he has had multiple in the past. He denies any acute fever, sweats or chills. He does have a thick cough and has been producing some white/yellow mucous for over a month now. He denies any shortness of breath, and does not need supplemental o2. He's hopeful to go home tomorrow. Constitutional: No fever, No chills, No sweats Eyes: No redness, No diplopia ENT: + nasal symptoms, No trouble swallowing Respiratory: + cough, + sputum, No wheezing, No shortness of breath, No dyspnea on exertion, No dyspnea at rest Cardiovascular: No chest pain, No orthopnea, No palpitations Abdomen: No pain, No nausea, No vomiting, No diarrhea, No constipation Musculoskeletal: No joint pain, No muscle pain, No swelling Male : + problem reported (foul smelling urine) Neurologic: No weakness, No numbness/tingling Skin: + rash, + itch (Aury Carvalho PA-C) Objective Vital Signs Date Time Temp Pulse Resp B/P (MAP) Pulse Ox O2 Delivery O2 Flow Rate FiO2 04/01/17 08:17 81 128/76 (93) 04/01/17 08:00 Room Air 04/01/17 07:14 36.5 62 18 113/68 (83) 93 Nasal Cannula 2.0 04/01/17 04:00 36.4 71 18 113/58 (76) 97 Room Air 04/01/17 04:00 Room Air 04/01/17 00:00 36.1 80 18 116/59 (78) 96 Room Air 04/01/17 00:00 Room Air 03/31/17 20:00 Room Air 03/31/17 19:53 36.5 74 20 112/64 (80) 94 Room Air 03/31/17 17:10 79 03/31/17 16:08 36.9 79 20 115/73 (87) 97 Room Air 03/31/17 16:00 Nasal Cannula 2.0 03/31/17 12:00 97 Nasal Cannula 2.0 03/31/17 11:59 36.7 85 20 117/51 (73) 97 Nasal Cannula 2.0 (Aury Carvalho PA-C) Physical Exam General Appearance: WD/WN, no apparent distress Eyes: PERRL, EOMI ENT: hearing grossly normal, pharynx normal Neck: supple, thyroid normal Respiratory/Chest: no respiratory distress, no accessory muscle use, + pertinent finding (+ Cough, on room air, + tight/diminished breath sounds in the LLL. No wheeze or rales.) Cardiovascular: no JVD, + systolic murmur (holosystolic grade III/), + irregularly irregular Abdomen: normal bowel sounds, non tender, soft, + pertinent finding (Multiple abdominal hernias, + chronic urostomy) Extremities: non-tender, no pedal edema, no calf tenderness, + pertinent finding (Right AKA, no pedal edema on the left.) Neurologic/Psychiatric: alert, normal mood/affect, oriented x 3 Skin: warm/dry, no rash (Aury Carvalho, KELLEN) Laboratory Results Last 24 Hours Test 03/31/17 11:48 04/01/17 05:24 Magnesium Level 2.0 mg/dl Digoxin Level 1.1 ng/ml White Blood Count 12.30 K/uL Red Blood Count 3.73 M/uL Hemoglobin 10.4 g/dL Hematocrit 35.2 % Mean Corpuscular Volume 94.4 fL Mean Corpuscular Hemoglobin 27.9 pg Mean Corpuscular Hemoglobin Concent 29.5 g/dl Platelet Count 114 K/uL Mean Platelet Volume 9.7 fL Neutrophils (%) (Auto) 81.9 % Lymphocytes (%) (Auto) 6.9 % Monocytes (%) (Auto) 9.5 % Eosinophils (%) (Auto) 0.7 % Basophils (%) (Auto) 0.1 % Neutrophils # (Auto) 10.07 K/uL Lymphocytes # (Auto) 0.85 K/uL Monocytes # (Auto) 1.17 K/uL Eosinophils # (Auto) 0.09 K/uL Basophils # (Auto) 0.01 K/uL RDW Standard Deviation 64.0 fL RDW Coefficient of Variation 18.5 % Immature Granulocyte % (Auto) 0.9 % Immature Granulocyte # (Auto) 0.11 K/uL Tear Drop Cells 1+ Ovalocytes 1+ Echinocytes 2+ Prothrombin Time 58.7 SECONDS Prothromb Time International Ratio 5.1 Sodium Level 140 mmol/L Potassium Level 4.2 mmol/L Chloride Level 115 mmol/L Carbon Dioxide Level 14 mmol/L Anion Gap 11.0 mmol/L Blood Urea Nitrogen 73 mg/dl Creatinine 4.40 mg/dl Est Creatinine Clear Calc Drug Dose 11.8 ml/min Estimated GFR () 13.0 Estimated GFR (Non- 11.2 BUN/Creatinine Ratio 16.5 Random Glucose 93 mg/dl Calcium Level 7.7 mg/dl (Aury Carvalho, KELLEN) Assessment and Plan Assessment and Plan 86 y/o M with a complex medical history including CKD IV, CHF, AF, bladder CA post cystectomy - urostomy and recurrent UTIs. Presents with progressive weakness, fevers and intermittent confusion. He has a chronic cough, denies CP , N/V/D or MEIER. On arrival to the ER a fever was confirmed. His UA is + and his urine appears grossly purulent. Initial labs are notable for leukocytosis. Sepsis - UTI - based on previous microbiology, pt placed on Dapto - Zosyn added due to sepsis pending culture results - growing e.coli in prelim report, will transition to oral abx once sensitivity resulted. - He has not exhibited hypotension, however, his volume status and pressure will bear monitoring due to underlying CHF. He has been assigned to telemetry. - possible can move off tele today - urostomy draining purulent urine, + foul smell Cough ? LLL pneumonia - CXR reviewed and does show some consolidation in the LLL. - Zosyn and dapto will cover infectious etiology of the lung- will choose oral abx to also cover once urine sensitivity returns. - Will start on mucinex, flutter, incentive spirometry, and duonebs along with other supportive care CHF - appears to be euvolemic in the LLE today. - due to infection and potential for hypotension- no additional diuretics provided - Will hold Lasix tomorrow with worsening Cr. to 4.4, continue Bblocker. LISSET on CKD stg IV - creatinine slightly increased to 4.4 today, baseline appears to be high 3s. - Will hold lasix x 1 day and trend BMP daily AF - rate is slightly high which may be due to infection and fever - monitor on telemetry - cont Coreg and Dig - INR is supratherapeutic so that Coumadin can be held for 1-2 days CODE STATUS: Full code DVT ppx: Coumadin Disposition: From home, lives with , likely discharge within 24 hours/when medically stable. (Aury Carvalho, PA-C) I agree with PA assessment and plan and have seen and examined pt myself Resting comfortably in bed Labs reviewed and VSS Did well with PT Awaiting urine c&s Cont antibx at this time Cont to monitor INR Likely DC in next 24 hrs (Lior Biggs, D.O.)
[2017-04-01] MEDS: CHOLESTYRAMINE LIGHT 4 GM PKT PO SCH ×2 (10:05→22:11)
--- NOTE | 2017-04-01 10:24 | Clinical Documentation Query ---
MARK Norman : CLINICAL DOCUMENTATION QUERIES QUERY 1 OF 3 Patient is an 86 year old male admitted for treatment of sepsis secondary to UTI. Noted intermittent confusion in this setting. Alteration in mental status is the hallmark symptom of encephalopathy. As appropriate, consider documentation as suggested below. In your clinical opinion is this patient being managed for: ( ) Metabolic encephalopathy ( ) Other explanation of clinical findings (Please Explain) ( ) Unable to determine (Please Define) ( ) Need to Discuss ( ) Not Agree The medical record reflects the following clinical findings, treatment, and risk factors. Clinical Indicators: As above Treatment: Blood and urine cultures, Daptomycin, Zosyn, serial labs, admission to telemetry Risk Factors: Age, urostomy QUERY 2 OF 3 Noted history of "urostomy and recurrent UTI's". Unknown to reader whether urostomy is to drainage bag or is a continent urostomy with intermittent self catheterization. As appropriate, consider explicit documentation of this as a complication of care. In your clinical opinion is this patient being managed for: ( ) UTI due to (likely/suspected) poor self-catheterization technique ( ) Other explanation of clinical findings (Please Explain) ( ) Unable to determine (Please Define) ( ) Need to Discuss ( ) Not Agree The medical record reflects the following clinical findings, treatment, and risk factors. Clinical Indicators: As above Treatment:Cultures, Daptomycin, Zosyn Risk Factors: As above QUERY 3 OF 3 Documentation includes chronic diastolic CHF, and notes "clinically he is mildly volume overloaded". BNP on admission was 9756. Pulmonary vascular congestion noted on chest radiograph. Became hypoxic while in the ED with noted IV bolus of NSS requiring supplemental oxygen. As appropriate, consider documentation as suggested below in order to capture the possible acuity of this diagnosis. In your clinical opinion is this patient being managed for: ( ) Acute on chronic diastolic CHF ( ) Other explanation of clinical findings (Please Explain) ( ) Unable to determine (Please Define) ( ) Need to Discuss ( ) Not Agree The medical record reflects the following clinical findings, treatment, and risk factors. Clinical Indicators: As above Treatment: Telemetry, supplemental O2, oral Lasix Risk Factors: Age, IVF administration, chronic diastolic CHF, sepsis Please clarify and document your clinical opinion in the progress notes and discharge summary. Terms such as "probable", "suspected", "likely", "questionable", "possible", or "still to be ruled out" are acceptable. IF IN AGREEMENT, YOU MUST DOCUMENT ABOVE DIAGNOSTIC STATEMENT IN DAILY PROGRESS NOTES AND DISCHARGE SUMMARY. This document is not part of the patient's record. Thank You, Elie Barrett, ANNAMARIE [phone]
[2017-04-01] MEDS ORDERED: ALBUT/IPRATROP 3MG/0.5MG NEB 3 ML VIAL INH PRN (13:15)
--- NOTE | 2017-04-01 14:28 | Discharge Instructions ---
Discharge Instructions Date of Service Apr 02, 2017. Admission Reason for Admission: Sepsis, Uti, Confusion Discharge Discharge Diagnosis / Problem: Urosepsis Discharge Goals Goal(s): Decrease discomfort, Improve function, Increase independence, Improve disease control Activity Recommendations Activity Limitations: resume your previous activity Lifting Limitations: no more than 25 pounds, gradually increase as tolerated Exercise/Sports Limitations: rest today, gradually increase as tolerated May Resume Sexual Activity: when tolerated Shower/Bathe: no limitations Driving or Machine Use: resume 1 day after discharge . Instructions / Follow-Up Instructions / Follow-Up You were admitted to [facility] with confusion and diagnosed with urosepis (urinary tract infectious sepsis). During your stay here you were treated with intravenous antibiotics, and other supportive care. You were also treated prophylactically for a possible pneumonia as you exhibited symptoms including cough, mucous production. Your breath sounds improved over the course of your hospital stay. Your symptoms resolved and you were stable for discharge with oral antibiotics Medications: Take Levaquin 500 mg every other day starting on 04/03. Your last dose will be on 04/11. Hold Coumadin (warfarin) x 2 days, then resume your normal regimen. Your INR at time of discharge was = 5.8 Continue taking all other medications as prescribed. Follow up: Follow up with your Primary Care Provider within 1 week. Follow up with Dr. Mccallum, today as scheduled. Current Hospital Diet Patient's current hospital diet: Renal Diet Discharge Diet Recommended Diet: Renal Diet Procedures Procedures Performed: None Pending Studies Studies pending at discharge: no Medical Emergencies . Who to Call and When: Medical Emergencies: If at any time you feel your situation is an emergency, please call 911 immediately. . Non-Emergent Contact Non-Emergency issues call your: Primary Care Provider, College Basketball Coach Call Non-Emergent contact if: you have a fever, temperature is above 100.5, you have any medication questions . Past History Medical & Surgical History: (1) Sepsis (2) UTI (urinary tract infection) (3) Metabolic encephalopathy (4) Diastolic CHF (5) Acute renal failure superimposed on stage 4 chronic kidney disease (6) Prostate cancer (7) Bladder cancer (8) Renal cancer (9) History of nephrectomy, unilateral (10) Supratherapeutic INR . "Provider Documentation" section prepared by Madelyn Carvalho. . VTE Core Measure Inpt VTE Proph given/why not?: Warfarin (Coumadin), T.E.DApolinar Stockings, SCD's
[2017-04-01] MEDS: ALBUT/IPRATROP 3MG/0.5MG NEB 3 ML VIAL INH SCH ×2 (15:17→19:25)
[2017-04-01] MEDS: GUAIFENESIN 200 MG TAB PO SCH ×2 (16:30→20:41)
[2017-04-01] MEDS: DIGOXIN 0.125 MG TAB PO SCH (16:30)
[2017-04-02] VITALS: BP 138/71; PULSE 80; TEMP 36.7; O2SAT 92
[2017-04-02] MEDS: GUAIFENESIN 200 MG TAB PO SCH ×3 (00:27→08:07)
[2017-04-02] MEDS: PIPERACILL/TAZOBAC IV 3.375 GM in DEXTROSE 5% 100ML 100 ML IV SCH (01:40)
[2017-04-02 04:00] VITALS: BP 140/82; PULSE 81; TEMP 36.8; O2SAT 96
[2017-04-02] MEDS ORDERED: DAPTOmycin IV 450 MG in SODIUM CHLORIDE 0.9% 50ML 50 ML IV SCH (06:00)
[2017-04-02 06:13] LABS: HEMATOCRIT 34.3 % (42-52); MEAN CELL VOLUME 92.7 fL (80-100); MEAN CORPUSCULAR HEMOGLOBIN 27.8 pg (25-34); MEAN PLATELET VOLUME 10.2 fL (7.4-10.4); PLATELET COUNT 119 K/uL (130-400)
[2017-04-02 06:39] LABS: PROTHROMBIN TIME (PATIENT) 66.9 SECONDS (9.0-12.0)
[2017-04-02 06:44] LABS: INR 5.8 (0.9-1.1)
[2017-04-02 06:52] VITALS: PULSE 75; O2SAT 94
[2017-04-02] MEDS: ALBUT/IPRATROP 3MG/0.5MG NEB 3 ML VIAL INH SCH (06:52)
[2017-04-02 07:04] LABS: BUN/CREATININE RATIO 15.3 (10-20); CALCIUM 7.8 mg/dl (8.5-10.1); CREATININE 4.7 mg/dl (0.60-1.40); POTASSIUM 4.2 mmol/L (3.5-5.1)
[2017-04-02 07:08] LABS: BASO % 0.1 %; BASO ABS # 0.01 K/uL (0-0.2); COMPLETE YES; ECHINOCYTES 1+; EOS % 1.3 %; LYMPH % 9.8 %; LYMPH ABS # 0.94 K/uL (1.2-3.4); MONO % 11.5 %; NEUT % 76.3 %
[2017-04-02 07:22] VITALS: BP 129/69; PULSE 94; TEMP 36.7; O2SAT 95
[2017-04-02 08:00] VITALS: O2SAT 95
[2017-04-02] MEDS: PAROXETINE 30 MG TAB PO SCH (08:13)
[2017-04-02] MEDS: CALCIUM ACETATE 667MG GELCAP PO SCH (08:14)
[2017-04-02] MEDS: CALCITRIOL 0.25 MCG CAP PO SCH (08:14)
[2017-04-02] MEDS ORDERED: LEVO1TAB35 PO (08:16)
[2017-04-02] MEDS: MESALAMINE DR TABLET 800 MG TABDR PO SCH (08:18)
[2017-04-02] MEDS: MOMETASONE/FORMOTEROL (DULERA) INH INH SCH (08:23)
[2017-04-02] MEDS: POLYETHYLENE (MIRALAX) 17 GM PACK PO SCH (08:24)
[2017-04-02] MEDS ORDERED: LEVO1TAB34 PO (08:29)
--- NOTE | 2017-04-02 08:34 | Discharge Summary ---
Discharge Summary Date of Service Apr 02, 2017. (Aury Carvalho PA-C) Discharge Summary Admission Date: Mar 31, 2017 at 05:30 Discharge Date: Apr 02, 2017 Discharge Disposition: Home with services Principal Diagnosis: Metabolic encephalopathy from urosepsis and possible LLL pneumonia Problems/Secondary Diagnoses: CKD IV, CHF, AF, bladder CA post cystectomy - urostomy and recurrent UTIs. Immunizations: History of Tetanus Vaccine?: PT UNABLE TO REMEMBER History of Pneumococcal: PT UNAWARE. History of Hepatitis B Vaccine: No Procedures: SINGLE VIEW CHEST CLINICAL HISTORY: Sepsis. FINDINGS: An AP, portable, upright chest radiograph is compared to study dated 04/18/2016 and correlated with chest CT dated 12/11/2015. The examination is severely degraded by portable technique, motion artifact, and patient rotation. The heart is enlarged and there is atherosclerotic calcification of the thoracic aorta. There is no clear evidence of pulmonary basilar congestion. Advanced emphysema and changes of chronic interstitial lung disease are similar to previous. There is diffuse interstitial thickening and subpleural reticulation. Airspace opacities are suggested at the left lung base. No large pleural effusion or pneumothorax is seen. The skeletal structures are osteopenic. The bony thorax is grossly intact. IMPRESSION: 1. Cardiomegaly without clear radiographic evidence of congestive failure. 2. Changes of emphysema and chronic interstitial lung disease are similar to previous. 3. Suspect more focal airspace consolidation at the left lung base which was not seen on 04/18/2016. Correlated clinically for evidence of superimposed pneumonia/aspiration pneumonitis. Radiographic follow-up to resolution is recommended. Electronically signed by: Jason Reina M.D. 03/31/2017 8:08 AM Dictated Date/Time: 03/31/2017 8:06 AM The status of this report is Signed Consultations: None (Aury Carvalho PA-C) Medication Reconciliation New Medications: Levofloxacin (Levaquin) 500 Mg Tab 1 TAB PO Q2D for 10 Days, #5 TAB Continued Medications: Acetaminophen (Tylenol) 325 Mg Tab 650 MG PO Q4H PRN for Pain, TAB Alprazolam (Alprazolam) 0.25 Mg Tab 0.125-0.25 TAB PO BID PRN for Anxiety, #60 Calcitriol (Calcitriol) 0.25 Mcg Cap 0.25 MCG PO QAM, #30 CAP Calcitriol (Rocaltrol Cap) 0.25 Mcg Cap 0.25 MCG PO DAILY, CAP Calcium Acetate (Phoslo 667 Mg) 667 Mg Cap 1334 MG PO TIDM, #90 CAP Calcium Acetate (Phoslo 667 Mg) 667 Mg Cap 2 CAPSULES PO WM, CAP Calcium Carbonate (Oyster Shell Calcium) 1,250 Mg Tab 1250 MG PO BID, #60 TAB Carvedilol (Coreg) 6.25 Mg Tab 12.5 MG PO BID Cholecalciferol (Vitamin D3) 50,000 Unit Cap 61586 UNITS PO WK TAKE THIS EVERY SATURDAY Cholestyramine (Cholestyramine) 4 Gm/Dose Pow 4 GM PO BID ONE SCOOP DISSOLVED IN WATER TWICE DAILY. Digoxin (Digoxin) 0.125 Mg Tab 0.0625 MG PO DAILY@16, #30 TAB Epoetin Kip (Procrit) 40 000/ [place] 14660 UNIT SC, VIAL INJECT 40,000 UNITS SUBCUTANEOUSLY EVERY WEEK ON SATURDAY. HOLD FOR HGB GREATER THAN,OR EQUAL TO, 12. Furosemide (Lasix) 40 Mg Tab 40 MG PO DAILY Mesalamine (Asacol Hd) 800 Mg Tab 800 MG PO BID Mometasone Furoate-Formoterol (Dulera 100/5 Mcg) 1 Aer Aer 2 PUFFS INH BID for 30 Days, #13 GM 5 Refills Nitroglycerin (Nitrostat) 0.4 Mg/1 Tab Subl 0.4 MG SL UD PRN for Chest Pain, #30 Paroxetine (Paroxetine HCl) 20 Mg Tab 30 MG PO DAILY Polyethylene (Miralax) 17 Gm Pow 17 GM PO BID, #30 Prednisone (Prednisone) 1 Mg Tab 4 TAB PO DAILY Vitamins W/ Lipotropics (Balance B-50) 1 Tab Tab 1 TAB PO BID Warfarin Sod (Jantoven) 2 Mg Tab 2 MG PO DAILY DAILY DIRECTED Warfarin Sod (Coumadin) 1 Mg Tab 1 MG PO QDB Warfarin Sod (Coumadin) 2 Mg Tab 2 MG PO HS Warfarin Sod (Coumadin) 3 Mg Tab 3 MG PO DAILY Discharge Exam The patient was seen and examined this morning. Pt reports doing well today. No acute complaints. Physical Exam General Appearance: WD/WN, no apparent distress Eyes: PERRL, EOMI ENT: hearing grossly normal, pharynx normal Neck: supple, thyroid normal Respiratory/Chest: no respiratory distress, no accessory muscle use, + pertinent finding (+ Cough, on room air, + tight/diminished breath sounds in the LLL. No wheeze or rales.) Cardiovascular: no JVD, + systolic murmur (holosystolic grade III/), + irregularly irregular Abdomen: normal bowel sounds, non tender, soft, + pertinent finding (Multiple abdominal hernias, + chronic urostomy) Extremities: non-tender, no pedal edema, no calf tenderness, + pertinent finding (Right AKA, no pedal edema on the left.) Neurologic/Psychiatric: alert, normal mood/affect, oriented x 3 Skin: warm/dry, no rash Review of Systems: Constitutional: No fever, No chills, No sweats Eyes: No eye pain, No diplopia ENT: No dental problems, No trouble swallowing Respiratory: + cough, + sputum, No shortness of breath, No dyspnea on exertion, No hemoptysis Cardiovascular: No chest pain, No edema, No palpitations Abdomen: No pain, No nausea, No vomiting Musculoskeletal: No joint pain, No swelling Genitourinary - Male: No hematuria, No dysuria Neurologic: No weakness, No numbness/tingling Psychiatric: No depression symptoms, No anxiety Endocrine: No fatigue Integumentary: No rash, No itch (Aury Carvalho, KELLEN) Hospital Course History of Present Illness Source: patient, hospital records 86 y/o M with a complex medical history including CKD IV, CHF, AF, bladder CA post cystectomy - urostomy and recurrent UTIs. Presents with progressive weakness, fevers and intermittent confusion. He has a chronic cough, denies CP , N/V/D or MEIER. On arrival to the ER a fever was confirmed. His UA is + and his urine appears grossly purulent. Initial labs are notable for leukocytosis. Physical Exam General Appearance: + pertinent finding (Takative elderly male - appears lethargic and fatigued without overt distress.) Head: normocephalic, atraumatic Eyes: normal inspection ENT: normal ENT inspection, pharynx normal Neck: supple, no JVD Respiratory/Chest: chest non-tender, + decreased breath sounds, + pertinent finding (Poor effort - poor air movement) Cardiovascular: + systolic murmur, + irregularly irregular Abdomen/GI: normal bowel sounds, soft, + pertinent finding (Urostomy present - no surrounding inflamation noted ) Back: normal inspection, no CVA tenderness Extremities/Musculoskelatal: + pertinent finding (R AKA - trace edema on L) Neurologic/Psych: analytical scientist II-XII nml as tested, no motor/sensory deficits, alert, + pertinent finding (Shows occasional mild confusion, however, mentation is largely intact) Skin: normal color, warm/dry Hospital Course: 86 y/o M with a complex medical history including CKD IV, CHF, AF, bladder CA post cystectomy - urostomy and recurrent UTIs. Presents with progressive weakness, fevers and intermittent confusion. He has a chronic cough, denies CP , N/V/D or MEIER. On arrival to the ER a fever was confirmed. His UA is + and his urine appears grossly purulent. Initial labs are notable for leukocytosis. Sepsis - UTI causing metabolic encephalopathy, secondary to indwelling urostomy - based on previous microbiology, pt placed on Dapto - Zosyn added due to sepsis pending culture results - growing e.coli in prelim report, transitioned to oral levaquin renally dosed x 10 days to cover both the UTI and possible pneumonia. - urostomy draining purulent urine, + foul smell - he has follow up with Dr. Mccallum on 04/02 in the afternoon Cough ? LLL pneumonia - CXR reviewed and does show some consolidation in the LLL. - Zosyn and dapto will cover infectious etiology of the lung- transitioned to levaquin as above. - Continue on mucinex, flutter, incentive spirometry upon discharge. CHF, acute on chronic diastolic at time of admission - appears to be euvolemic in the LLE today. - due to infection and potential for hypotension- no additional diuretics provided - Held Lasix on day of discharge due to worsening Cr. to 4.7, continue Bblocker. LISSET on CKD stg IV - creatinine slightly increased to 4.7 today, baseline appears to be high 3s. - Held lasix x 1 day, pt has appointment with Dr. Mccallum today. Will ask him to determine when to resume lasix. AF - rate was slightly elevated at time of presentation, but has been rate controlled since then. - Coreg and Dig - INR is 5.8 today, holding Coumadin for 2 more days, then will need to have INR rechecked, follow up with Dr. Garza within 1 week CODE STATUS: Full code DVT ppx: Coumadin Disposition: From home, lives with , discharge home today Total Time Spent: Greater than 30 minutes This includes examination of the patient, discharge planning, medication reconciliation, and communication with other providers. (Aury Carvalho, VISHNUC) I agree with PA assessment and plan and have seen and examined pt myself Resting comfortably in bed Labs and vitals reviewed Denies any worsening urinary sx D/C on antibx Stable for discharge home with PT (Lior Biggs, D.OApolinar) Discharge Instructions Please refer to the electronic Patient Visit Report (Discharge Instructions) for additional information. (Aury Carvalho, VISHNUC) Follow-Up Follow up with your Primary Care Provider within 1 week. Follow up with Dr. Mccallum, today as scheduled. (Aury Carvalho, CULLEN-C) Additional Copies To Nickolas Garza M.D.
[2017-04-02] MEDS ORDERED: LEVOFLOXACIN 750 MG TAB PO ONE (09:00)
[2017-04-02] MEDS: CHOLESTYRAMINE LIGHT 4 GM PKT PO SCH (09:19)
[2017-04-02 10:01] VITALS: BP 129/69; PULSE 94; TEMP 36.7; O2SAT 95
[2017-04-02] MEDS ORDERED: LEVOFLOXACIN 750 MG TAB PO SCH (11:00)
== END 2017-04-02 11:15 | disposition home health service (06) | DRG 698 ==
LOC: EDBD 03:21 → C.EDA 03:22 → C.MED 05:30 → ENRESERV 05:46
PROVIDERS: ADMIT Internal Medicine; ATTEND Hospitalist
DX: T83.518A Infection and inflammatory reaction due to other urinary catheter, initial encounter (principal); A41.9 Sepsis, unspecified organism; G93.41 Metabolic encephalopathy; J18.9 Pneumonia, unspecified organism; I50.33 Acute on chronic diastolic (congestive) heart failure; N18.4 Chronic kidney disease, stage 4 (severe); N39.0 Urinary tract infection, site not specified; I13.0 Hypertensive heart and chronic kidney disease with heart failure and stage 1 through stage 4 chronic kidney disease, or unspecified chronic kidney disease; N17.9 Acute kidney failure, unspecified; I48.2 Chronic atrial fibrillation; Z79.01 Long term (current) use of anticoagulants; Z79.52 Long term (current) use of systemic steroids; Z79.899 Other long term (current) drug therapy; Z87.891 Personal history of nicotine dependence

== ENCOUNTER → 2017-04-04 | Outpatient (CLI) | payer OTHER ==
[~2017-04-04] MED LIST changes: +CALC0.2510 PO; +CALC667C4 PO; +CHOL1CAP95 PO; +CMD3 PO; -DIGO0.122 PO; +LEVO1TAB34 PO; -LVQ500 PO; +NTRGSL/4 UT; +PRD/1 PO; -VTMD PO; -VTMD1000 PO
[2017-04-04 18:10] LABS: INR 2.7 (0.9-1.1); PROTHROMBIN TIME (PATIENT) 29.7 SECONDS (9.0-12.0)
== END | disposition home or self-care (01) ==
LOC: C.LABSPEC 16:05
PROVIDERS: ATTEND Internal Medicine Pulmonary Disease
DX: I48.91 Unspecified atrial fibrillation (principal)

== ENCOUNTER → 2017-04-08 | Outpatient (CLI) | payer OTHER ==
[2017-04-08 17:23] LABS: HEMATOCRIT 37.6 % (42-52)
[2017-04-08 17:48] LABS: BLOOD UREA NITROGEN 67 mg/dl (7-18); BUN/CREATININE RATIO 12.9 (10-20); CALCIUM 8.6 mg/dl (8.5-10.1); CARBON DIOXIDE 15 mmol/L (21-32); CHLORIDE 116 mmol/L (98-107); GLUCOSE 95 mg/dl (70-99); PHOSPHORUS 4.3 mg/dl (2.5-4.9); POTASSIUM 4.1 mmol/L (3.5-5.1); SODIUM 139 mmol/L (136-145)
== END | disposition home or self-care (01) ==
LOC: C.LABBC 12:46
PROVIDERS: ATTEND Physician Assistant
DX: N18.9 Chronic kidney disease, unspecified (principal); D64.9 Anemia, unspecified

== ENCOUNTER → 2017-04-19 | Outpatient (CLI) | payer OTHER ==
[~2017-04-19] MED LIST changes: -LEVO1TAB34 PO
--- NOTE | 2017-04-19 12:30 | DIAGNOSTIC IMAGING REPORT ---
CHEST 2 VIEWS ROUTINE CLINICAL HISTORY: COUGH COMPARISON STUDY: 03/31/2017 FINDINGS: The heart is enlarged. There is stable interstitial thickening. There is no lobar consolidation. There is stable minor blunting of the costophrenic angles. There is stable aortic tortuosity.[ IMPRESSION: 1. Stable cardiomegaly 2. Stable chronic interstitial thickening 3. No evidence of focal pulmonary consolidation Electronically signed by: Daryl Chew M.D. 04/19/2017 12:29 PM Dictated Date/Time: 04/19/2017 12:28 PM
== END | disposition home or self-care (01) ==
LOC: C.RAD1850 11:59
PROVIDERS: ATTEND Physician Assistant
DX: R05 Cough (principal); R91.8 Other nonspecific abnormal finding of lung field; I51.7 Cardiomegaly

== ENCOUNTER → 2017-04-22 | Outpatient (CLI) | payer OTHER ==
[2017-04-22 14:51] LABS: HEMATOCRIT 39.3 % (42-52)
[2017-04-22 15:03] LABS: PROTHROMBIN TIME (PATIENT) 51.6 SECONDS (9.0-12.0)
[2017-04-22 15:11] LABS: BLOOD UREA NITROGEN 81 mg/dl (7-18); BUN/CREATININE RATIO 20.7 (10-20); CALCIUM 7.5 mg/dl (8.5-10.1); CARBON DIOXIDE 15 mmol/L (21-32); CHLORIDE 116 mmol/L (98-107); GLUCOSE 127 mg/dl (70-99); PHOSPHORUS 3.7 mg/dl (2.5-4.9); POTASSIUM 4.3 mmol/L (3.5-5.1); SODIUM 140 mmol/L (136-145)
[2017-04-22 15:32] LABS: INR 4.5 (0.9-1.1)
== END | disposition home or self-care (01) ==
LOC: C.LABSPEC 13:46
PROVIDERS: ATTEND Physician Assistant
DX: N18.9 Chronic kidney disease, unspecified (principal); D64.9 Anemia, unspecified; M35.3 Polymyalgia rheumatica; M70.62 Trochanteric bursitis, left hip; I48.91 Unspecified atrial fibrillation

== ENCOUNTER → 2017-05-06 | Outpatient (CLI) | payer OTHER ==
[2017-05-06 15:31] LABS: HEMATOCRIT 41.4 % (42-52)
== END | disposition home or self-care (01) ==
LOC: C.LABSPEC 14:11
PROVIDERS: ATTEND Internal Medicine
DX: D64.9 Anemia, unspecified (principal)

== ENCOUNTER 2017-05-20 02:59 | Emergency (ER) | payer OTHER ==
[~2017-05-20] VITALS: Ht 182.9 cm; Wt 68.2 kg
[~2017-05-20 02:59] MED LIST changes: -NTRGSL/4 UT
[2017-05-20 03:00] VITALS: TEMP 37.7; Ht 182.9 cm; Wt 68.2 kg
[2017-05-20] MEDS ORDERED: SODIUM CHLORIDE 0.9% 500ML 500 ML IV STA (03:12)
--- NOTE | 2017-05-20 03:27 | EMERGENCY ROOM VISIT NOTE ---
History Report prepared by Ela: Elana Oreilly Under the Supervision of: Dr. Alfredo Crow M.D. First contact with patient: 03:00 Chief Complaint: FALL Stated Complaint: FALL/WEAKNESS/NAUSEA History of Present Illness The patient is an 86 year old male who presents to the Emergency Room with complaints of an episode of fall QUALITY ASSOCIATE. The patient presents to the ED by EMS. He states that he fell because he has been feeling weak. He reports he hit his head and currently has a headache. He denies any pain elsewhere. He notes he has been feeling dizzy starting a couple weeks ago. He describes the dizziness as the world moving around him. He also feels nauseous. He feels "car sick". He has vomited. He denies any leg swelling or abdominal pain. He denies any change in bowel movement. He is on Coumadin and digoxin. Source of History: patient, nursing staff Onset: QUALITY ASSOCIATE Position: other (global) Quality: other (fall) Timing: other (episodic) Associated Symptoms: + headache, + nausea, + vomiting, + weakness, No abdominal pain Note: Pt reports dizziness. Pt denies leg swelling. Review of Systems See HPI for pertinent positives & negatives. A total of 10 systems reviewed and were otherwise negative. Past Medical & Surgical Medical Problems: (1) Acute renal failure (2) Acute renal failure superimposed on stage 4 chronic kidney disease (3) Acute respiratory failure (4) Amputated right leg (5) Anemia (6) Aneurysm (7) Atrial fibrillation (8) Bladder cancer (9) Chronic kidney disease, stage IV (severe) (10) Diastolic CHF (11) DVT (deep venous thrombosis) (12) Hernia (13) History of chemotherapy (14) History of nephrectomy, unilateral (15) HTN (hypertension) (16) Hypertension (17) Kidney disease (18) Metabolic encephalopathy (19) PE (pulmonary embolism) (20) Phlebitis (21) Prostate cancer (22) Pulmonary embolus (23) Renal cancer (24) Right upper lobe pneumonia (25) Secondary hyperparathyroidism of renal origin Surgical Problems: (1) H/O total cystectomy (2) History of nephrectomy (3) History of prostate surgery (4) History of prostatectomy Family History Cancer Heart disease Hypertension Social History Smoking Status: Former Smoker Alcohol Use: occasionally Drug Use: none Marital Status: Housing Status: lives with significant other Occupation Status: retired Current/Historical Medications Scheduled Calcitriol (Rocaltrol Cap), 0.25 MCG PO DAILY Calcium Acetate (Phoslo 667 Mg), 2 CAPSULES PO WM Carvedilol (Coreg), 12.5 MG PO BID Cholecalciferol (Vitamin D3), 50,000 UNITS PO WK Cholestyramine (Cholestyramine), 4 GM PO BID Digoxin (Digoxin), 0.0625 MG PO DAILY AT 1600 Epoetin Kip (Procrit), 40,000 UNITS SC WK Furosemide (Lasix), 40 MG PO DAILY Mesalamine (Asacol Hd), 800 MG PO BID Paroxetine (Paroxetine HCl), 30 MG PO DAILY Prednisone (Prednisone), 4 TAB PO DAILY Vitamins W/ Lipotropics (Balance B-50), 1 TAB PO BID Warfarin Sod (Coumadin), 3 MG PO QPM Scheduled PRN Acetaminophen (Tylenol), 650 MG PO Q4H PRN for Pain Alprazolam (Alprazolam), 0.125-0.25 TAB PO BID PRN for Anxiety Nitroglycerin (Nitrostat), 0.4 MG UT PRN PRN for Chest Pain Allergies Coded Allergies: Sulfa Antibiotics (Verified Allergy, Severe, RASH, COULDN'T BREATHE, ) Physical Exam Vital Signs Date Time Temp Pulse Resp B/P (MAP) Pulse Ox O2 Delivery O2 Flow Rate FiO2 05/20/17 05:01 158/88 Room Air 05/20/17 05:00 78 20 98 Room Air 05/20/17 04:35 153/104 05/20/17 04:30 71 05/20/17 04:04 75 16 170/101 99 Room Air 05/20/17 04:01 170/101 05/20/17 03:30 73 15 05/20/17 03:08 74 05/20/17 03:00 37.7 69 16 168/100 92 Room Air Physical Exam GENERAL: Patient is chronically unwell appearing and in minimal distress. HEENT: No acute trauma, normocephalic atraumatic, mucous membranes dry, no nasal congestion, no scleral icterus. NECK: No stridor, no adenopathy, no meningismus, trachea is midline. LUNGS: No dyspnea. Clear to auscultation and equal bilaterally. No wheeze, no rhonchi. HEART: Mildly tachycardic rate and irregular rhythm. No murmurs, rubs, gallops appreciated. ABDOMEN: Soft, nontender, bowel sounds positive, no masses appreciated, no peritonitis. Urostomy in right lower abdomen. BACK: No midline tenderness, no CVA tenderness EXTREMITIES: Right leg AKA. Normal motion all other extremities, no cyanosis, no edema. NEUROLOGIC: Alert and oriented, no acute motor or sensory deficits, no focal weakness, cranial nerves grossly intact. SKIN: No rash, no jaundice, no diaphoresis. Medical Decision & Procedures ER Provider Diagnostic Interpretation: X ray results are stated below per my interpretation: Chest: 1 view: No infiltrate, no effusion, normal cardiac border. No acute change from previous. Pelvis: 1 view: Extensive arthritic changes with diffuse clipping throughout the pelvis, no fracture, no dislocation appreciated. Radiology results and stated below per my review and [facility] radiologist interpretation: CT Head: Comparison is made to prior CT head on 04/18/2016. Prominent acute on chronic right subdural hematoma, most prominent at the vertex , new compared to prior exam. Probably small amount of blood along the interhemispheric falx. Mild leftward midline shift measuring 5 mm. Mass effect on the right lateral ventricle. No ventriculomegaly. Bilateral lens implants. Polyp versus mucous retention cyst in the left maxillary sinus. Atherosclerotic calcifications in the intracranial vasculature. CT C spine: No acute traumatic abnormality identified. Osteopenia. Degenerative changes of the cervical spine. Possible nonspecific 3 mm nodule at the right lung apex although this is only partially visualized at the edge of the [id number] and could represent a vessel on end instead. Laboratory Results 05/20/17 03:10 Red Blood Count 4.25, Mean Corpuscular Volume 88.7, Mean Corpuscular Hemoglobin 27.1, Mean Corpuscular Hemoglobin Concent 30.5, Mean Platelet Volume 10.0, Neutrophils (%) (Auto) 80.5, Lymphocytes (%) (Auto) 7.2, Monocytes (%) (Auto) 10.7, Eosinophils (%) (Auto) 0.5, Basophils (%) (Auto) 0.2, Neutrophils # (Auto ) 8.77, Lymphocytes # (Auto) 0.78, Monocytes # (Auto) 1.17, Eosinophils # (Auto ) 0.05, Basophils # (Auto) 0.02 05/20/17 03:10 Test 05/20/17 03:10 White Blood Count 10.89 K/uL (4.8-10.8) Red Blood Count 4.25 M/uL (4.7-6.1) Hemoglobin 11.5 g/dL (14.0-18.0) Hematocrit 37.7 % (42-52) Mean Corpuscular Volume 88.7 fL (80-100) Mean Corpuscular Hemoglobin 27.1 pg (25-34) Mean Corpuscular Hemoglobin Concent 30.5 g/dl (32-36) Platelet Count 118 K/uL (130-400) Mean Platelet Volume 10.0 fL (7.4-10.4) Neutrophils (%) (Auto) 80.5 % Lymphocytes (%) (Auto) 7.2 % Monocytes (%) (Auto) 10.7 % Eosinophils (%) (Auto) 0.5 % Basophils (%) (Auto) 0.2 % Neutrophils # (Auto) 8.77 K/uL (1.4-6.5) Lymphocytes # (Auto) 0.78 K/uL (1.2-3.4) Monocytes # (Auto) 1.17 K/uL (0.11-0.59) Eosinophils # (Auto) 0.05 K/uL (0-0.5) Basophils # (Auto) 0.02 K/uL (0-0.2) RDW Standard Deviation 60.2 fL (36.4-46.3) RDW Coefficient of Variation 18.7 % (11.5-14.5) Immature Granulocyte % (Auto) 0.9 % Immature Granulocyte # (Auto) 0.10 K/uL (0.00-0.02) Ovalocytes 1+ Echinocytes 1+ Prothrombin Time 47.8 SECONDS (9.0-12.0) Prothromb Time International Ratio 4.2 (0.9-1.1) Activated Partial Thromboplast Time 47.8 SECONDS (21.0-31.0) Partial Thromboplastin Ratio 1.8 Urine Color DK YELLOW Urine Appearance CLEAR (CLEAR) Urine pH 7.0 (4.5-7.5) Urine Specific Flushing 1.015 (1.000-1.030) Urine Protein 3+ (NEG) Urine Glucose (UA) NEG (NEG) Urine Ketones NEG (NEG) Urine Occult Blood 2+ (NEG) Urine Nitrite NEG (NEG) Urine Bilirubin NEG (NEG) Urine Urobilinogen NEG (NEG) Urine Leukocyte Esterase NEG (NEG) Urine WBC (Auto) 5-10 /hpf (0-5) Urine RBC (Auto) 10-30 /hpf (0-4) Urine Hyaline Casts (Auto) 1-5 /lpf (0-5) Urine Epithelial Cells (Auto) >30 /lpf (0-5) Urine Bacteria (Auto) NEG (NEG) Anion Gap 10.0 mmol/L (3-11) Est Creatinine Clear Calc Drug Dose 14.8 ml/min Estimated GFR () 17.8 Estimated GFR (Non- 15.3 BUN/Creatinine Ratio 22.5 (10-20) Calcium Level 7.9 mg/dl (8.5-10.1) Magnesium Level 1.9 mg/dl (1.8-2.4) Total Bilirubin 0.5 mg/dl (0.2-1) Direct Bilirubin 0.1 mg/dl (0-0.2) Aspartate Amino Transf (AST/SGOT) 17 U/L (15-37) Alanine Aminotransferase (ALT/SGPT) 15 U/L (12-78) Alkaline Phosphatase 47 U/L (45-117) Troponin I 0.049 ng/ml (0-0.045) Total Protein 7.0 gm/dl (6.4-8.2) Albumin 2.9 gm/dl (3.4-5.0) Digoxin Level 0.9 ng/ml (0.8-2.0) Laboratory results as reviewed by me. Medications Administered Medications (Trade) Dose Ordered Sig/Olya Route Start Time Stop Time Status Last Admin Dose Admin Sodium Chloride 500 ml @ 999 mls/hr Q31M STAT IV 05/20/17 03:12 05/20/17 03:42 DC 05/20/17 03:12 999 MLS/HR Ondansetron HCl (Zofran Inj) 4 mg NOW STAT IV 05/20/17 04:01 05/20/17 04:02 DC 05/20/17 04:08 4 MG Phytonadione 10 mg/Sodium Chloride 51 ml @ 102 mls/hr ONE ONCE IV 05/20/17 04:15 05/20/17 04:44 DC 10/9/17 04:15 102 MLS/HR Lorazepam (Ativan Inj) 0.25 mg NOW STAT IV 05/20/17 04:19 05/20/17 04:20 DC 05/20/17 04:19 0.25 MG Prothrombin Complex Concent (Human) 2000 unit/ Syringe 80 ml @ 10 mls/min TODAY@0440 IV 05/20/17 04:40 05/20/17 06:00 DC 05/20/17 04:58 10 MLS/MIN ECG Indication: weakness Rate (beats per minute): 72 Rhythm: atrial fibrillation Findings: no acute ischemic change, other (bifascicular block, QTC 470) ED Course 0304: The patient was evaluated in room B7. A complete history and physical exam was performed. 0312: NSS 500 ml @ 999 mls/hr IV. 0401: Zofran Inj 4 mg IV. 0413: I reevaluated the patient. He is still nauseous. Per family, he is do not resuscitate if cardiac or pulmonary arrest. 0415: Phytonadione 10 mg/Sodium Chloride 51 ml @ 102 mls/hr IV. 0419: Lorazepam 0.25 mg IV. 0430: [facility] was paged at this time. 0434: I reevaluated the patient. He has worsening facial droop and slurred speech. He is still awake and oriented, breathing comfortably. We have decided to give Ativan because he is still nauseous. He is getting vitamin K and Kcentra is currently being obtained from pharmacy. 0440: Prothrombin Complex Concent (Human) 2000 unit/Syringe 80 ml @ 10 mls/min IV. 0456: [facility] has not called back so the [facility] was paged. 0519: The [facility] called back and recommends the trauma center be called. Trauma center was paged. 0524: I discussed the patient's case with Dr. Hall, [facility] trauma surgery. He has accepted the patient for transfer. He recommends 1 gm of Keppra if it does not slow down the transfer. 0530: I reevaluated the patient. He is stable. I discussed the results with his family. They verbalized agreement of the treatment plan. The patient will be transferred to [facility] for further care. Medical Decision Differential: Sepsis, Infectious (UTI/Pneumonia/Meningitis/etc), Metabolic/ Electrolyte Abnormality, Cardiac, Hepatic, Endocrine, Toxicologic, Neurologic, amongst other pathologies entertained. 88 yr old male brought in for evaluation after several falls, weakness and dizziness this evening. Exam with mildly dehydrated male chronically unwell without acute neuro deficits. After family arrives makes a bit easier to know that mild dizziness/fatigue over last 2 weeks with some issues with transferring (previous right leg AKA). Over last 12 hours acutely worse with several falls, though unclear if he hit his head. notes she thought he had left facial drooping a bit yesterday. CT head done revealing large acute on chronic subdural with small midline shift. CT cervical added on given trauma concern which was negative for acute findings. CXR/Pelv clear. EKG afib ( chronic). Trop mild bump consistent with chronic renal failure and is at stable level to before. EKG afib with bifascicular block. Initially tachy on arrival resolved with rest. Mod HTN though will avoid aggressive treatment given some herniation. Vomiting multiple times for which zofran attempted though with mild QTC elevation (470) and having received several doses, I felt further zofran held off for a bit. Thus felt that Ativan small dose reasonable. Just prior to this being given patient started developing increasing left facial droop and slurred speech. Remains with stable mental status and protecting airway. At this time felt that more aggressive control of bleeding required and thus given KCentra. Discussed with [facility] who accept for transfer. Requested Keppra but given unable to given by ems and would delay transfer will hold on giving this. Family and patient make clear he is DNR. Head Trauma GCS Score: 15 Medication Reconcilliation Current Medication List: was personally reviewed by me Blood Pressure Screening Patient's blood pressure: Elevated blood pressure Will be monitored at trauma center. Consults Time Called: 05 Consulting Physician: Dr. Hall, [facility] trauma surgery Returned Call: 05 I discussed the patient's case with him. He has accepted the patient for transfer. He recommends 1 gm of Keppra if it does not slow down the transfer. Impression Primary Impression: Subdural hematoma Additional Impressions: Neurological deficit present Cerebral herniation Critical Care I have personally spent greater than 90 minutes of critical care time in the direct management of this patient. This was a life/limb threatening event. This includes time spent evaluating patient, direct bedside care, chart review, placing orders, interpretation of diagnostic studies, discussion with consultants, patient, and family members, as well as other required patient management activities. This 90 minutes is in excess of all separately billable procedures. Scribe Attestation The scribe's documentation has been prepared under my direction and personally reviewed by me in its entirety. I confirm that the note above accurately reflects all work, treatment, procedures, and medical decision making performed by me. Departure Information Dispostion Transfer Acute Care Facility Referrals Nickolas Garza M.D. (PCP) Patient Instructions My [facility] Problem Qualifiers
[2017-05-20 03:32] LABS: HEMATOCRIT 37.7 % (42-52); MEAN CELL VOLUME 88.7 fL (80-100); MEAN CORPUSCULAR HEMOGLOBIN 27.1 pg (25-34); MEAN CORPUSCULAR HGB CONC 30.5 g/dl (32-36); PLATELET COUNT 118 K/uL (130-400); RED BLOOD COUNT 4.25 M/uL (4.7-6.1); WHITE BLOOD COUNT 10.89 K/uL (4.8-10.8)
[2017-05-20 03:37] LABS: URINE APPEARANCE CLEAR (CLEAR); URINE BILIRUBIN NEG (NEG); URINE COLOR DK YELLOW; URINE EPITHELIAL CELL AUTO >30 /lpf (0-5); URINE NITRITE NEG (NEG); URINE SPECIFIC GRAVITY 1.015 (1.000-1.030); UROBILINOGEN NEG (NEG); ZZURINE CULT IF INDIC CATH NO
[2017-05-20 03:40] LABS: MANUAL MICROSCOPIC REQUIRED? NO; REVIEW REQ? NO
[2017-05-20] MEDS ORDERED: EPGI40M SC (03:42)
[2017-05-20] MEDS ORDERED: LNX125 PO (03:42)
[2017-05-20] MEDS ORDERED: NTRGSL/4 UT (03:42)
[2017-05-20 03:57] LABS: BASO % 0.2 %; BASO ABS # 0.02 K/uL (0-0.2); BUN/CREATININE RATIO 22.5 (10-20); CALCIUM 7.9 mg/dl (8.5-10.1); COMPLETE YES; CREATININE 3.4 mg/dl (0.60-1.40); ECHINOCYTES 1+; EOS % 0.5 %; IG% 0.9 %; LYMPH % 7.2 %; LYMPH ABS # 0.78 K/uL (1.2-3.4); MAGNESIUM 1.9 mg/dl (1.8-2.4); MONO % 10.7 %; NEUT % 80.5 %; OVALOCYTES 1+; POTASSIUM 4.6 mmol/L (3.5-5.1)
[2017-05-20 03:59] LABS: PARTIAL THROMBOPLASTIN RATIO 1.8; PROTHROMBIN TIME (PATIENT) 47.8 SECONDS (9.0-12.0)
[2017-05-20] MEDS ORDERED: ONDANSETRON INJ 2 MG/ML 2 ML VIAL IV STA (04:01)
[2017-05-20 04:04] LABS: INR 4.2 (0.9-1.1)
[2017-05-20] MEDS ORDERED: PHYTONADIONE INJ 10 MG in SODIUM CHLORIDE 0.9% 50ML 50 ML IV ONE (04:15)
[2017-05-20] MEDS ORDERED: LORAZEPAM 2 MG/ML 1 ML VIAL IV STA (04:19)
[2017-05-20] MEDS ORDERED: PROTHROMBIN COMP CONC- KCENTRA 2,000 UNIT in SYRINGE 0 ML IV SCH (04:40)
[2017-05-20 05:00] VITALS: PULSE 78; O2SAT 98
[2017-05-20 05:01] VITALS: BP 158/88
[2017-05-20] MEDS ORDERED: LEVETIRACETAM IV 1,000 MG in DEXTROSE 5% 100ML 100 ML IV ONE (05:30)
--- NOTE | 2017-05-20 06:54 | DIAGNOSTIC IMAGING REPORT ---
CT OF THE HEAD WITHOUT CONTRAST CLINICAL HISTORY: Altered mental status. Falls. Vomiting. COMPARISON STUDY: Head CT April 18, 2016. CT DOSE: 614.27 mGy.cm TECHNIQUE: Helical axial images of the head were obtained without IV contrast. Automated exposure control was utilized for the study. A dose lowering technique was utilized adhering to the principles of ALARA. FINDINGS: Note is made of a large mixed attenuation right-sided subdural hematoma, predominantly located at the vertex. The hematoma measures 3 cm in thickness. There is mass effect with 7 mm of leftward midline shift and mild compression of the right lateral ventricle. There may be trace hemorrhage along the falx. The basilar cisterns are patent. White matter hypodensity suggests small vessel disease. There are no findings to suggest acute dural sinus thrombosis or acute territorial infarct. There is no calvarial fracture. There are postsurgical findings within the sinuses with minimal mucosal thickening. IMPRESSION: 1. Large mixed attenuation right subdural hematoma which may reflect an acute on chronic hematoma. Trace hemorrhage along the falx. Mass effect with 7 mm of leftward midline shift and mild compression of the right lateral ventricle. 2. No calvarial fracture. Electronically signed by: Francis Love M.D. 05/20/2017 6:53 AM Dictated Date/Time: 05/20/2017 6:49 AM
--- NOTE | 2017-05-20 07:07 | DIAGNOSTIC IMAGING REPORT ---
CT SCAN OF THE CERVICAL SPINE CLINICAL HISTORY: Fall. COMPARISON STUDY: No priors. TECHNIQUE: CT scan of the cervical spine is performed from the skull base to the upper thoracic spine. Images are reviewed in the axial, sagittal, and coronal planes. IV contrast was not administered for this examination. A dose lowering technique was utilized adhering to the principles of ALARA. CT DOSE: 276.58 mGy.cm FINDINGS: Skeletal structures: The skeletal structures are osteopenic. There is no evidence of fracture or subluxation involving the cervical spine. Vertebral body height and alignment are maintained. The odontoid process and lateral masses are intact. The atlantoaxial articulation is preserved noting productive degenerative change. The spinous processes appear intact. Tiny anterior osteophytes are seen in the lower cervical spine. There is moderate multilevel cervical spondylosis. Uncovertebral and facet arthropathy contribute sterile foraminal narrowing at several levels. Intervertebral discs: There is moderate disc space narrowing at C5-C6 and C6-C7. Mild disc space narrowing is seen at C4-C5. Central canal: Posterior disc osteophyte complexes at C5-C6 and C6-C7 likely contribute to acquired compromise of the central canal. Soft tissues: The prevertebral and paraspinous soft tissues are within normal limits. Atherosclerotic calcification is noted in the carotid bulbs. Calvarium: The visualized calvarium at the skull base appears intact. Brain parenchyma: Partially visualized brain parenchyma the skull base is within normal limits noting age-related involutional change. Sinuses and mastoids: The visualized paranasal sinuses are clear. The mastoid air cells are well pneumatized. Lung apices: Clear as visualized. IMPRESSION: 1. There is no evidence of fracture or subluxation involving the cervical spine. 2. Osteopenia and spondylotic change as above. Electronically signed by: Jason Reina M.D. 05/20/2017 7:06 AM Dictated Date/Time: 05/20/2017 7:03 AM
--- NOTE | 2017-05-20 07:15 | DIAGNOSTIC IMAGING REPORT ---
SINGLE VIEW CHEST CLINICAL HISTORY: Change in mental status. FINDINGS: An AP, portable, upright chest radiograph is compared to study dated 04/19/2017 and correlated with chest CT dated 12/11/2015. The examination is degraded by portable technique and patient rotation. The heart is enlarged and there is atherosclerotic calcification of the thoracic aorta. There is no clear evidence of pulmonary vascular congestion. Advanced emphysema and changes of chronic interstitial lung disease are similar to previous. There is diffuse interstitial thickening and subpleural reticulation. There is no clear evidence of superimposed pneumonia. No large pleural effusion or pneumothorax is seen. The skeletal structures are osteopenic. The bony thorax is grossly intact. IMPRESSION: 1. Cardiomegaly without radiographic evidence of congestive failure. 2. Changes of emphysema and chronic interstitial lung disease are similar to previous. There is no convincing radiographic evidence of superimposed pneumonia. Clinical correlation will be required. Electronically signed by: Jason Reina M.D. 05/20/2017 7:14 AM Dictated Date/Time: 05/20/2017 7:12 AM
--- NOTE | 2017-05-20 07:17 | DIAGNOSTIC IMAGING REPORT ---
SINGLE VIEW PELVIS CLINICAL HISTORY: Fall. FINDINGS: An AP, portable, supine pelvic radiograph is correlated with pelvic CT dated 05/28/2016. The skeletal structures are osteopenic. There is no radiographic evidence of fracture involving the hips or bony pelvis. Mild arthritic change is noted in the hips. Sclerotic change is seen in the sacroiliac joints. Numerous surgical clips project over the pelvis. An ostomy is noted in the right lower quadrant. There is no radiographic evidence of bowel obstruction. Advanced atherosclerotic calcification is seen within the abdominal aorta, iliac vessels, and femoral arteries. 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 The overlying soft tissues are normal as visualized. IMPRESSION: There is no radiographic evidence of fracture involving the hips or bony pelvis. Electronically signed by: Jason Reina M.D. 05/20/2017 7:16 AM Dictated Date/Time: 05/20/2017 7:14 AM
== END 2017-05-20 05:48 | disposition short-term general hospital (02) ==
LOC: EDBD 02:59 → C.EDB 03:00
DX: S06.5X0A Traumatic subdural hemorrhage without loss of consciousness, initial encounter (principal); G93.5 Compression of brain; W19.XXXA Unspecified fall, initial encounter; I48.91 Unspecified atrial fibrillation; Z79.01 Long term (current) use of anticoagulants; E86.0 Dehydration; N18.4 Chronic kidney disease, stage 4 (severe); I12.9 Hypertensive chronic kidney disease with stage 1 through stage 4 chronic kidney disease, or unspecified chronic kidney disease; R47.81 Slurred speech; R29.810 Facial weakness; N25.81 Secondary hyperparathyroidism of renal origin; Z66 Do not resuscitate; Z89.611 Acquired absence of right leg above knee; Z85.51 Personal history of malignant neoplasm of bladder; Z87.891 Personal history of nicotine dependence; Z79.899 Other long term (current) drug therapy; Z86.718 Personal history of other venous thrombosis and embolism; Z90.5 Acquired absence of kidney; Z86.711 Personal history of pulmonary embolism; Z85.46 Personal history of malignant neoplasm of prostate; Z85.528 Personal history of other malignant neoplasm of kidney; Z87.01 Personal history of pneumonia (recurrent); Z90.6 Acquired absence of other parts of urinary tract; Z90.79 Acquired absence of other genital organ(s); Z80.9 Family history of malignant neoplasm, unspecified; Z82.49 Family history of ischemic heart disease and other diseases of the circulatory system